=== PATIENT | male | born 1940 | race Caucasian/White ===

== ENCOUNTER 2020-03-10 19:26 | Inpatient (IN) | payer MEDICARE, OTHER, SELFPAY ==
--- NOTE | ~2020-03-10 | XR_ITS ---
EXAMINATION: XR chest 1V portable DATE: 03/10/2020 20:31 INDICATION: COVID positive, shortness of breath, tiredness and weakness. TECHNIQUE: frontal view of the chest was obtained. COMPARISON: Chest radiograph dated 07/27/18 FINDINGS: Bilateral interstitial and groundglass opacities throughout both lungs. No pneumothorax or definitive pleural effusion. Calcified nodules at the left lung base and calcified left hilar and mediastinal l ymph nodes consistent with old granulomatous disease. Cardiomegaly. Median sternotomy wires and media stinal surgical clips are seen, likely from prior coronary artery bypass grafting. IMPRESSION: 1. Diffuse bilateral interstitial and groundglass opacities which could represent either congestive h eart failure related pulmonary edema or pneumonia. 2. Cardiomegaly. Reviewed, dictated and finalized at location A. ITY COMPLIANCE MANAGER IMPRESSION: 1. Diffuse bilateral interstitial and groundglass opacities which could represe nt either congestive heart failure related pulmonary edema or pneumonia. 2. Cardiomegaly.
--- NOTE | ~2020-03-10 | CT_ITS ---
EXAMINATION: CT brain wo con DATE: 03/10/2020 20:32 INDICATION: Altered mental status. Lethargy. TECHNIQUE: Computed tomography (CT) of the head was performed without intravenous contrast. Sagittal and coronal reconstructions were performed. The mA was adjusted according to patient size. Iterative reconstruction technique was employed. The dose-length product was 681.00 mGy-cm. COMPARISON: head CT dated 02/05/2019 FINDINGS: Unchanged small old infarcts at the bilateral caudate nuclei, left lentiform nucleus extending to the left frontal jacobs radiata, left cerebellar hemisphere and a few small old cortical infarcts in the posterior right frontal, left parietal and bilateral occipital lobes. No acute intracranial hemorrha ge, acute infarction or abnormal extra axial fluid collection. There is mild to moderate scattered wh ite matter hypoattenuation consistent with chronic small vessel ischemic disease. Symmetric prominenc e of the sulci consistent with moderate age-appropriate diffuse cerebral volume loss. Ventricles are normal and symmetric. No mass/mass effect. Mild to moderate mucosal thickening the bilateral ethmoid and maxillary sinuses. The orbits and mastoid air cells are normal. Intracranial calcified cerebral a therosclerosis is noted. IMPRESSION: 1. No acute intracranial process. 2. 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 3. Additional age-related changes including moderate diffuse volume loss and mild to moderate scatter ed white matter hypoattenuation consistent with chronic small vessel ischemic disease. Reviewed, dictated and finalized at location A. TRUCK ENGINE MECHANIC IMPRESSION: 1. No acute intracranial process. 2. 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 3. Additional age-related changes including moderate diffuse volume loss and mi ld to moderate scattered white matter hypoattenuation consistent with chronic s mall vessel ischemic disease.
--- NOTE | ~2020-03-10 | XR_ITS ---
XR chest 1V portable 03/15/2020 06:08 Indication: Shortness of breath Procedure: AP portable chest Comparison: Comparison to multiple prior studies sequentially, with oldest reviewed study dated 07/20. Findings: There is post median sternotomy for CABG. Borderline heart size. Diffuse bilateral airspace disease unchanged. Calcified granulomas left lower lung. No pneumothorax. No significant pleural eff usion. No acute osseous abnormality. Impression: 1: Stable bilateral airspace disease which may represent edema or pneumonia. Reviewed, dictated and finalized at location A. IX BATH OPERATOR Impression: 1: Stable bilateral airspace disease which may represent edema or pneumonia.
[2020-03-10 19:38] VITALS: BP 160/78; PULSE 87; RESP 19; TEMP 36.7; O2SAT 99
[2020-03-10 19:48] VITALS: O2SAT 100
--- NOTE | 2020-03-10 19:52 | ECG_ITS ---
Measurements Intervals [place] Rate: 89 P: 50 NM: 180 QRS: -6 QRSD: 138 T: 171 QT: 383 QTc: 468 Interpretive Statements SINUS RHYTHM VENTRICULAR COUPLET AND VENTRICULAR PREMATURE COMPLEX INTRAVENTRICULAR CONDUCTION DELAY LEFT VENTRICULAR HYPERTROPHY AND ST-T CHANGE BORDERLINE R WAVE PROGRESSION, ANTERIOR LEADS INFERIOR INFARCT, AGE INDETERMINATE BASELINE ARTIFACT- I, II ,III, AVR, V1-V3 ABNORMAL ECG Electronically Signed On 03-10-2020 20:00:19 LEAD PROGRAMMER ANALYST by Donald Davison D.O.
--- NOTE | 2020-03-10 20:00 | ED.GENADULT ---
HPI - General Adult General Chief complaint: Shortness of Breath/Dyspnea Stated complaint: Not feeling well, low o2 Time Seen by Provider: 03/10/20 19:38 Source: family History of Present Illness HPI narrative: Patient is a 79 y/o male sent by [facility] for low sat. EMS reports that patient's sat was in 70s on RA and he was place on NRB and brought here. Daughter states that patient lives with her and he has been not feeling well for last 5-6 days. She states that patient has been less active and more lethargic last few days. There is no known alleviating or exacerbating factor. She states that there are multiple family members that tested positive for COVID recently. Patient is confused and unable to provide additional history. Related Data Allergies Allergy/AdvReac Type Severity Reaction Status Date / Time strawberry Allergy Mild Verified 02/05/19 11:03 morphine Allergy Unknown Verified 02/05/19 11:03 Review of Systems Review of Systems: ROS unobtainable: Yes unobtainable due to mental status [facility] Social History Social History Gender identity (if verbalized by the patient): Male Exam Const: General: no acute distress and ill appearing Orientation/consciousness: lethargic HENMT: Head: normocephalic Ears: external ears normal General nose exam: Normal external nose present Eyes: General: appearance normal, both eyes and all related structures Conjunctivae: conjunctivae normal Neck: Neck: normal visual inspection and full ROM Chest: Chest palpation & inspection: normal inspection of the chest and no tenderness Resp: Effort & Inspection: normal respiratory effort Auscultation: clear to auscultation bilaterally Cardio: Rate: regular rate Rhythm: regular rhythm GI: GI Palp: No abdominal tenderness and Yes Soft to palpation Skin: General skin exam: normal color and turgor normal Neuro: General: confusion Cognition (Neuro): normal cognition Extrem: General: normal to inspection, full ROM and no pedal edema Psych: Appearance: grossly normal Mental Status: mental status grossly normal Affect: normal affect Course Consultations Consultation #1: Discussed with Dr. Calabrese, who agrees to admit. Date: 03/10/20 Time: 22:36 Vital Signs Vital signs: Vital Signs Temperature 36.7 C 03/10/20 19:38 Pulse Rate 87 03/10/20 19:38 Respiratory Rate 19 03/10/20 19:38 Blood Pressure 160/78 H 03/10/20 19:38 Pulse Oximetry 99 03/10/20 19:38 Temperature 36.7 C 03/10/20 19:38 Pulse Rate 87 03/10/20 19:38 Respiratory Rate 19 03/10/20 19:38 Blood Pressure 160/78 H 03/10/20 19:38 Pulse Oximetry 98 03/10/20 22:00 Medical Decision Making Vital Signs Vital Signs: Vital Signs Temperature 36.7 C 03/10/20 19:38 Pulse Rate 87 03/10/20 19:38 Respiratory Rate 19 03/10/20 19:38 Blood Pressure 160/78 H 03/10/20 19:38 Pulse Oximetry 99 03/10/20 19:38 Temperature 36.7 C 03/10/20 19:38 Pulse Rate 87 03/10/20 19:38 Respiratory Rate 19 03/10/20 19:38 Blood Pressure 160/78 H 03/10/20 19:38 Pulse Oximetry 98 03/10/20 22:00 Lab Data Result diagrams: 03/10/20 20:07 03/10/20 20:07 Labs: Lab Results 03/10/20 03/10/20 03/10/20 Range/Units 20:06 20:07 20:07 WBC 4.9 (4.5-10.0) K/mm3 RBC 4.10 L (4.6-6.20) M/mm3 Hgb 12.3 L (14.0-18.0) g/dL Hct 36.7 L (42.0-52.0) % MCV 89.5 (80-100) fl MCH 30.0 (26-34) pg MCHC 33.5 (32-36) g/dl RDW 14.6 H (11.5-14.5) % Plt Count 171 (150-375) k/mm3 MPV 10.8 H (7.4-10.4) fl Immature Gran % (Auto) 0.2 (0-0.5) % Neut % (Auto) 79.0 H (45.5-73.1) % Lymph % (Auto) 14.4 L (18.3-44.2) % Ida % (Auto) 6.2 (2.6-8.5) % Eos % (Auto) 0.2 (0-4.4) % Baso % (Auto) 0.0 L (0.2-1.2) % Lymph # (Auto) 0.70 L (0.9-3.2) K/mm3 Ida # (Auto) 0.3 (0.1-0.6) K/mm3 Eos # (Auto) 0.0 (0-0.3) K/mm3 Baso # (Auto) 0.0 (0.0-0
[2020-03-10 20:15] VITALS: O2SAT 95
[2020-03-10 20:20] LABS: Eosinophils Percent Auto 0.2 % (0-4.4); Hematocrit 36.7 % (42.0-52.0); Hemoglobin 12.3 g/dL (14.0-18.0); Immature Granulocyte Absolute 0.01 K/mm3 (0.00-0.031); Immature Granulocyte Percent A 0.2 % (0-0.5); Lymphocytes Percent Auto 14.4 % (18.3-44.2); Mean Corpuscular HGB Conc 33.5 g/dl (32-36); Mean Corpuscular Volume 89.5 fl (80-100); Mean Platelet Volume 10.8 fl (7.4-10.4); Monocytes Absolute Auto 0.3 K/mm3 (0.1-0.6); Monocytes Percent Auto 6.2 % (2.6-8.5); Neutrophils Absolute Auto 3.8 K/mm3 (1.3-6.7); Platelet Count Result 171 k/mm3 (150-375); Red Cell Distribution Width 14.6 % (11.5-14.5); White Blood Count 4.9 K/mm3 (4.5-10.0)
[2020-03-10 20:25] LABS: Alveolar/Arterial O2 Gradient 116.4 mmHg; Base Excess ABG -3.1 mEq/l (+/-2.0); Fractional Inspired Oxygen 28 %; HCO3 ABG 19.2 mEq/l (22.0-26.0); Oxygen Content ABG 14.9 %vol (16.0-22.0); Oxygen Saturation ABG 89.5 % (95.0-100.0); Oxyhemoglobin 86.8 % THb (90.0-100.0); PCO2 ABG 26.7 mmHg (35.0-45.0); PO2 ABG 51.7 mmHg (80.0-100.0); PO2 FiO2 Ratio Arterial Blood 1.85 %; Site Drawn LEFT RADIAL; Total Hemoglobin 12.2 g/dL (12.0-18.0); pH ABG 7.474 (7.350-7.450)
[2020-03-10 20:26] LABS: Device NASAL CANNULA; Modified Allen's Test Pass
[2020-03-10 20:33] LABS: Alanine Aminotransferase 18 U/L (4-50); Albumin Level 3.8 g/dL (3.5-5.1); Alkaline Phosphatase 91 U/L (38-126); Anion Gap 9 mmol/L (8-16); Aspartate Amino Transferase 37 U/L (17-59); Bilirubin,Total 0.8 mg/dL (0.2-1.3); Blood Urea Nitrogen 29 mg/dL (9-20); Calcium 9.9 mg/dL (8.4-10.2); Carbon Dioxide 29 mmol/L (22-30); Chloride 101 mmol/L (98-107); Estimated CRCL calculation 53 ml/min; Estimated Glomerular Filt Rate 59; Glucose 179 mg/dL (75-110); Potassium 3.6 mmol/L (3.4-5.0); Sodium 139 mmol/L (137-145)
[2020-03-10 20:52] LABS: Troponin I 0.054 ng/mL (0.000-0.034)
[2020-03-10 21:56] LABS: NT Pro B Type Natriuretic Pept 3500 PG/ML (5-100)
[2020-03-10 22:00] VITALS: O2SAT 98
[2020-03-10] MEDS: FUROSEMIDE INJ 40 MG/4 ML VIAL IV PUSH (22:55)
[2020-03-10 23:24] LABS: Troponin I 0.052 ng/mL (0.000-0.034)
[2020-03-11] VITALS (17 sets, daily range): BP systolic 116–192; BP diastolic 41–89; PULSE 68–94; RESP 20–35; TEMP 35.8–36.7; O2SAT 92–97; BMI 27.5; BMI 27.6
--- NOTE | 2020-03-11 00:56 | ADMGEN ---
This patient, Marcio Rubi, was admitted to IMU Room 213-01. Patient/family oriented to hospital policies and general routines including ID bracelet, bed and alarms, visiting hours, pain management, procedures, bathroom and other care routines, personal items, smoking policy, room service/diet, and visiting hours. Information on how to activate the Rapid Response Team has been discussed. Patient/Family are encouraged to report perceived risks to care and to ask questions if they do not understand what they are told or what they should do.
[2020-03-11 02:44] LABS: Troponin I 0.048 ng/mL (0.000-0.034)
[2020-03-11 05:32] LABS: Anion Gap 7 mmol/L (8-16); Blood Urea Nitrogen 29 mg/dL (9-20); Calcium 9.2 mg/dL (8.4-10.2); Carbon Dioxide 27 mmol/L (22-30); Chloride 104 mmol/L (98-107); Estimated CRCL calculation 52 ml/min; Estimated Glomerular Filt Rate > 60; Glucose 178 mg/dL (75-110); Potassium 3.4 mmol/L (3.4-5.0); Sodium 138 mmol/L (137-145)
[2020-03-11] MEDS: ACETAMINOPHEN 325 MG TABLET 650 MG PO (10:34)
[2020-03-11 10:57] LABS: Glucose Point of Care 242 (65-105)
[2020-03-11 13:30] LABS: SARS-CoV-2 RNA PCR Positive
[2020-03-11 15:31] LABS: Glucose Point of Care 216 (65-105)
--- NOTE | 2020-03-11 16:38 | PM.IMHP ---
H&P: HPI History of Present Illness Date/Time: 03/11/20 16:38 Chief complaint: acute hypoxia respiratory failure, chf Narrative: Marcio Rubi is a 79 year old male sent by [facility] for low sat. multiple family members with covid, pt was initially on 15 liters of oxygen down to 5 liters now. pt may be needing oxygen on discharge. 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 History taken from family as pt is confused. lives with daughter, on monday was very sleepy very lethargic was incontinent, two family members are covid positive in the home. Pt has history of dm, copd, chf and multiple stents triple by pass and stroke. Pt is looking unwell with slight cough in the room Review of Systems Review of Systems: ROS unobtainable: Yes other (SOB, cough ) PMFSH Social History Social History Smoking packs per day: 1 Smoking cigarettes per day: 20.0 Years smoked: 30 Smoking pack-years: 30.00 Smoking status: Former smoker Tobacco type: cigarettes Alcohol intake: former Substance use: never Gender identity (if verbalized by the patient): Male Spiritual care concerns: No Meds Home Medications and Allergies Home Medications Medication Instructions Recorded Confirmed Type alogliptin 12.5 mg PO QAM 03/11/20 03/11/20 History atorvastatin 80 mg PO HS 03/11/20 03/11/20 History carvedilol 12.5 mg PO Q12H 03/11/20 03/11/20 History clopidogrel [Plavix] 75 mg PO QAM 03/11/20 03/11/20 History ferrous sulfate [Gentle Iron (iron 325 mg PO QAM 03/11/20 03/11/20 History sulfate)] furosemide [Lasix] 20 mg PO QNOON PRN 03/11/20 03/11/20 History furosemide [Lasix] 60 mg PO QAM 03/11/20 03/11/20 History insulin glargine [Lantus U-100 18 unit SUBCUT QPM 03/11/20 03/11/20 History Insulin] levothyroxine 100 mcg PO QAM 03/11/20 03/11/20 History metformin 1,000 mg PO BID 03/11/20 03/11/20 History venlafaxine [Effexor XR] 75 mg PO DAILY 03/11/20 03/11/20 History Allergies Allergy/AdvReac Type Severity Reaction Status Date / Time strawberry Allergy Mild Verified 02/05/19 11:03 morphine Allergy Unknown Verified 02/05/19 11:03 Vital Signs Vital Signs - 24 hr 03/10/20 19:38 03/10/20 19:48 03/10/20 20:15 Temperature 36.7 C Pulse Rate 87 Respiratory Rate 19 Blood Pressure 160/78 H Pulse Oximetry 99 100 95 03/10/20 22:00 03/11/20 00:01 03/11/20 00:25 Temperature 35.8 C L Pulse Rate 81 82 Respiratory Rate 24 H 22 H Blood Pressure 158/68 H 155/80 H Pulse Oximetry 98 96 92 03/11/20 01:17 03/11/20 02:00 03/11/20 04:00 Temperature 36.4 C L Pulse Rate 87 88 86 Respiratory Rate 20 Blood Pressure 150/58 H Pulse Oximetry 92 94 03/11/20 06:00 03/11/20 08:00 03/11/20 10:00 Temperature Pulse Rate 82 85 82 Respiratory Rate Blood Pressure Pulse Oximetry 92 03/11/20 10:59 03/11/20 12:00 03/11/20 14:00 Temperature 36.7 C 36.4 C Pulse Rate 84 77 81 Respiratory Rate 22 H 35 H Blood Pressure 116/62 118/41 L Pulse Oximetry 92 95 03/11/20 15:59 Temperature 36.3 C L Pulse Rate 78 Respiratory Rate 20 Blood Pressure 156/89 H Pulse Oximetry 96 Exam Const: General: lethargic, tired appearing and other (elderly man with wet cough, oriented x3, with oxygen on ) HENMT: Head: normocephalic Eyes: General: appearance normal, both eyes and all related structures Pupils: Equal, round and reactive pupils present Neck: Neck: supple Chest: Chest palpation & inspection: normal inspection of the chest Resp: Effort & Inspection: normal respiratory effort Auscultation: clear to auscultation bilaterally Cardio: Jugular venous distension: no JVD Rhythm: regular rhythm Heart sounds: S1 normal heart sound present and S2 normal
[2020-03-11] MEDS: metFORMIN HCL XR 500 MG TAB.SR.24H 1000 MG PO (17:05)
[2020-03-11] MEDS: INSULIN ASPART (*BKC) 100 UNITS/ML SUB-Q (17:05)
[2020-03-11] MEDS: INSULIN GLARGINE (*BKC) 100 UNITS/ML 18 UNITS SUB-Q (18:48)
[2020-03-11] MEDS: DEXAMETHASONE 2 MG TABLET 6 MG PO (18:48)
[2020-03-11 19:17] LABS: Alanine Aminotransferase 19 U/L (4-50)
[2020-03-11] MEDS: REMDESIVIR 200 MG/NS 250 ML 200 MG/250 ML BAG 250 MG IVPB (20:00)
[2020-03-11] MEDS: ATORVASTATIN 40 MG TABLET 80 MG PO (21:33)
[2020-03-11] MEDS: carvediloL 12.5 MG TABLET PO (21:33)
[2020-03-11] MEDS: ENOXAPARIN 40 MG/0.4 ML SYRINGE SUB-Q (21:34)
[2020-03-12] VITALS (16 sets, daily range): BP systolic 137–170; BP diastolic 62–86; PULSE 61–95; RESP 18–20; TEMP 34.6–37.2; O2SAT 91–99
[2020-03-12 03:48] LABS: Glucose Point of Care 273 (65-105)
[2020-03-12] MEDS: LEVOTHYROXINE SODIUM 100 MCG TABLET PO (06:25)
[2020-03-12] MEDS: hydrALAZINE HCL 20 MG/ML VIAL 10 MG IV PUSH (06:33)
[2020-03-12 07:04] LABS: Alanine Aminotransferase 20 U/L (4-50)
[2020-03-12] MEDS: DEXAMETHASONE 2 MG TABLET 6 MG PO (08:40)
[2020-03-12] MEDS: INSULIN ASPART (*BKC) 100 UNITS/ML SUB-Q ×3 (08:41→16:27)
[2020-03-12] MEDS: VENLAFAXINE HCL XR 75 MG CAP.ER.24H PO (08:44)
[2020-03-12] MEDS: metFORMIN HCL XR 500 MG TAB.SR.24H 1000 MG PO ×2 (08:44→16:27)
[2020-03-12] MEDS: carvediloL 12.5 MG TABLET PO ×2 (08:45→19:50)
[2020-03-12] MEDS: FERROUS SULFATE 324 MG TABLET PO (08:45)
[2020-03-12] MEDS: FUROSEMIDE 20 MG TABLET 60 MG PO (08:45)
[2020-03-12] MEDS: ENOXAPARIN 40 MG/0.4 ML SYRINGE SUB-Q ×2 (08:45→19:51)
[2020-03-12] MEDS: CLOPIDOGREL BISULFATE 75 MG TABLET PO (08:45)
--- NOTE | 2020-03-12 15:29 | PM.IMPN ---
Progress Note: A&P Assessment and Plan (1) Acute respiratory failure with hypoxia: Code(s): J96.01 - Acute respiratory failure with hypoxia Status: Acute Assessment and Plan: Pt is on 5 liters of oxygen was on 15 liters on admission, continue oxygen albuterol inhaler steroids for covid + COPD (2) CHF (congestive heart failure): Qualifiers: Heart failure chronicity: acute on chronic Heart failure type: unspecified Qualified Code(s): I50.9 - Heart failure, unspecified Code(s): I50.9 - Heart failure, unspecified Status: Acute Assessment and Plan: limit fluid hydration continue home medications (3) COVID-19: Code(s): U07.1 - COVID-19 Status: Acute Assessment and Plan: Order remdesivir, steroids and albuterol already started (4) Diabetes: Code(s): E11.9 - Type 2 diabetes mellitus without complications Status: Acute Assessment and Plan: SSI, insulin, AccuCheck watch for hyperglycemia with steroids continue metformin Subjective Date/time seen: 03/12/20 15:29 Interval history: Pt has history of dm, copd, chf and multiple stents triple by pass and stroke. Pt admitted with covid. Pt is doing better feels less SOB less cough, on 5 liters of oxygen, more alert talking to me without coughing, no fever . Review of Systems Review of Systems: All systems reviewed & are unremarkable except as noted in HPI and below Exam Narrative: Exam Narrative: Looks comfortable Chest: Chest palpation & inspection: normal inspection of the chest Resp: Effort & Inspection: normal respiratory effort GI: Inspection: normal to inspection Auscultation: normal bowel sounds Skin: General skin exam: normal color and dry skin Neuro: Cranial nerves: Yes CN's II-XII intact bilaterally and Yes Equal, round and reactive pupils present Cognition (Neuro): normal cognition Speech: normal speech Motor exam (neuro): 5/5 motor strength present throughout Extrem: General: normal to inspection Psych: Appearance: grossly normal Mental Status: mental status grossly normal Objective Data Vital Signs Vital Signs: Vital Signs - 24 hr 03/11/20 15:59 03/11/20 16:00 03/11/20 18:00 Temperature 36.3 C L 36.3 C L Pulse Rate 78 68 89 Respiratory Rate 20 20 Blood Pressure 156/89 H 156/89 H Pulse Oximetry 96 96 03/11/20 20:00 03/11/20 21:33 03/11/20 22:00 Temperature 36.1 C L Pulse Rate 88 94 84 Respiratory Rate 20 Blood Pressure 192/73 H Pulse Oximetry 97 03/12/20 00:00 03/12/20 02:00 03/12/20 04:00 Temperature 35.9 C L 36.2 C L Pulse Rate 62 74 68 Respiratory Rate 20 18 Blood Pressure 170/86 H 169/81 H Pulse Oximetry 98 99 03/12/20 06:00 03/12/20 08:00 03/12/20 08:45 Temperature 36.3 C L Pulse Rate 78 91 78 Respiratory Rate 18 Blood Pressure 162/76 H Pulse Oximetry 93 03/12/20 12:00 Temperature Pulse Rate Respiratory Rate Blood Pressure Pulse Oximetry 93 Intake/Output Intake/Output: Intake & Output 03/09/20 03/10/20 03/11/20 03/12/20 23:59 23:59 23:59 23:59 Intake Total 300 540 Output Total 825 650 Balance -525 -110 Meds/Results Medications: Active Medications Generic Name Dose Route Start Last Admin Trade Name Freq PRN Reason Stop Dose Admin Acetaminophen 650 mg 03/11/20 10:02 03/11/20 10:34 Acetaminophen 325 Mg Tablet PO 650 mg Q6H PRN Administration Mild Pain (1-3) or Fever Albuterol 2 puff 03/11/20 17:20 Albuterol Sulfate (*Sp) Aerosol 1 Puff INHALATION Q6HRT PRN Shortness Of Breath Atorvastatin Calcium 80 mg 03/11/20 21:00 03/11/20 21:33 Atorvastatin 40 Mg Tablet PO 80 mg HS NAKIA Administration Carvedilol 12.5 mg 03/11/20 21:00 03/12/20 08:45 Carvedilol 12.5 Mg Tablet PO 12.5 mg Q12HR NAKIA Administration Clopidogrel Bisulfate 75 mg 03/12/20 09:00 03/12/20 08:45 Clopidogrel Bisulfate 75 Mg Tablet PO 75 mg QAM
[2020-03-12 16:22] LABS: Glucose Point of Care 318 (65-105)
[2020-03-12 16:22] LABS: Glucose Point of Care 254 (65-105)
[2020-03-12 17:44] LABS: Glucose Point of Care 340 (65-105)
[2020-03-12 17:54] LABS: CRP 6.2 mg/dL (<1.0)
[2020-03-12] MEDS: ACETAMINOPHEN 325 MG TABLET 650 MG PO (19:44)
[2020-03-12] MEDS: ATORVASTATIN 40 MG TABLET 80 MG PO (19:50)
[2020-03-12 20:19] LABS: Alanine Aminotransferase 19 U/L (4-50); Albumin Level 3.4 g/dL (3.5-5.1); Alkaline Phosphatase 88 U/L (38-126); Anion Gap 8 mmol/L (8-16); Aspartate Amino Transferase 24 U/L (17-59); Bilirubin,Total 0.5 mg/dL (0.2-1.3); Blood Urea Nitrogen 31 mg/dL (9-20); Calcium 10.1 mg/dL (8.4-10.2); Carbon Dioxide 26 mmol/L (22-30); Chloride 101 mmol/L (98-107); Estimated CRCL calculation 56 ml/min; Estimated Glomerular Filt Rate > 60; Glucose 330 mg/dL (75-110); Potassium 4.3 mmol/L (3.4-5.0); Sodium 135 mmol/L (137-145)
--- NOTE | 2020-03-12 20:21 | PC.NURSE ---
Telephone report received from JESSICA Norris RN.
--- NOTE | 2020-03-12 20:36 | PC.NURSE ---
Transfer received per hospital bed from IMU 213. No complaints voiced.
--- NOTE | 2020-03-12 20:46 | PC.NURSE ---
This patient, Marcio Rubi, was transferred to [facility] on 03/12/20 at 2040. Personal belongings sent with patient. Report given EVANGELINA Mendiola. Appropriate documentation sent with patient.
[2020-03-12] MEDS: INSULIN GLARGINE (*BKC) 100 UNITS/ML 18 UNITS SUB-Q (22:00)
[2020-03-12] MEDS: REMDESIVIR 100 MG/NS 250 ML 100 MG/250 ML BAG 250 MG IVPB (22:21)
[2020-03-12 22:36] LABS: Glucose Point of Care 272 (65-105)
[2020-03-13] VITALS (12 sets, daily range): BP systolic 126–164; BP diastolic 62–74; PULSE 65–86; RESP 18–22; TEMP 35.8–36.9; O2SAT 80–97
[2020-03-13] MEDS: LEVOTHYROXINE SODIUM 100 MCG TABLET PO (06:04)
[2020-03-13 06:50] LABS: Alanine Aminotransferase 17 U/L (4-50)
[2020-03-13] MEDS: ENOXAPARIN 40 MG/0.4 ML SYRINGE SUB-Q ×2 (09:01→21:36)
[2020-03-13] MEDS: DEXAMETHASONE 2 MG TABLET 6 MG PO (09:01)
[2020-03-13] MEDS: carvediloL 12.5 MG TABLET PO ×2 (09:01→21:37)
[2020-03-13] MEDS: CLOPIDOGREL BISULFATE 75 MG TABLET PO (09:01)
[2020-03-13] MEDS: metFORMIN HCL XR 500 MG TAB.SR.24H 1000 MG PO ×2 (09:02→17:12)
[2020-03-13] MEDS: VENLAFAXINE HCL XR 75 MG CAP.ER.24H PO (09:02)
[2020-03-13] MEDS: FERROUS SULFATE 324 MG TABLET PO (09:02)
[2020-03-13] MEDS: INSULIN ASPART (*BKC) 100 UNITS/ML SUB-Q ×3 (09:13→17:12)
[2020-03-13] MEDS: FUROSEMIDE 20 MG TABLET 60 MG PO (11:50)
[2020-03-13 12:29] LABS: Glucose Point of Care 232 (65-105)
[2020-03-13 12:29] LABS: Glucose Point of Care 337 (65-105)
[2020-03-13 17:09] LABS: Glucose Point of Care 326 (65-105)
--- NOTE | 2020-03-13 17:37 | PM.IMPN ---
Progress Note: A&P Assessment and Plan (1) Acute respiratory failure with hypoxia: Code(s): J96.01 - Acute respiratory failure with hypoxia Status: Acute Assessment and Plan: Pt is on 4 liters of oxygen was on 15 liters on admission, continue oxygen albuterol inhaler steroids for covid + COPD (2) CHF (congestive heart failure): Qualifiers: Heart failure chronicity: acute on chronic Heart failure type: unspecified Qualified Code(s): I50.9 - Heart failure, unspecified Code(s): I50.9 - Heart failure, unspecified Status: Acute Assessment and Plan: limit fluid hydration continue home medications (3) COVID-19: Code(s): U07.1 - COVID-19 Status: Acute Assessment and Plan: on remdesivir started on 03/12/2020, steroids and albuterol already started (4) Diabetes: Code(s): E11.9 - Type 2 diabetes mellitus without complications Status: Acute Assessment and Plan: SSI, insulin, AccuCheck watch for hyperglycemia with steroids continue metformin Subjective Date/time seen: 03/13/20 17:37 Interval history: Pt has history of dm, copd, chf and multiple stents triple by pass and stroke. Pt admitted with covid. Pt is doing better feels less SOB less cough, on 4 liters of oxygen, resting in bed. Review of Systems Review of Systems: All systems reviewed & are unremarkable except as noted in HPI and below Exam Narrative: Exam Narrative: Looks comfortable on oxygen lying in bed resting HENMT: Head: normocephalic Neck: Neck: supple Chest: Chest palpation & inspection: normal inspection of the chest Resp: Effort & Inspection: normal respiratory effort Cardio: Jugular venous distension: no JVD Rhythm: regular rhythm Heart sounds: S1 normal heart sound present and S2 normal heart sound present GI: Inspection: normal to inspection Auscultation: normal bowel sounds : General: Yes no CVA tenderness Back/Spine/Pelvis: Back: no CVA tenderness Skin: General skin exam: normal color and dry skin Neuro: Cranial nerves: Yes CN's II-XII intact bilaterally and Yes Equal, round and reactive pupils present Cognition (Neuro): normal cognition Speech: normal speech Motor exam (neuro): 5/5 motor strength present throughout Extrem: General: normal to inspection Psych: Appearance: grossly normal Mental Status: mental status grossly normal Objective Data Vital Signs Vital Signs: Vital Signs - 24 hr 03/12/20 18:00 03/12/20 19:42 03/12/20 19:50 Temperature 34.6 C L Pulse Rate 80 83 80 Respiratory Rate 18 Blood Pressure 164/64 H Pulse Oximetry 91 03/12/20 20:00 03/12/20 20:40 03/13/20 00:00 Temperature 37.2 C 36.7 C Pulse Rate 80 76 Respiratory Rate 20 22 H Blood Pressure 137/70 126/62 Pulse Oximetry 93 97 94 03/13/20 04:00 03/13/20 08:00 03/13/20 09:01 Temperature 35.8 C L 36.7 C Pulse Rate 86 69 80 Respiratory Rate 22 H 18 Blood Pressure 129/64 158/64 H Pulse Oximetry 92 96 03/13/20 09:20 03/13/20 12:00 03/13/20 14:38 Temperature 36.9 C Pulse Rate 80 65 Respiratory Rate 22 H 20 Blood Pressure 139/66 Pulse Oximetry 92 97 80 L 03/13/20 14:40 Temperature Pulse Rate Respiratory Rate Blood Pressure Pulse Oximetry 91 Intake/Output Intake/Output: Intake & Output 03/10/20 03/11/20 03/12/20 03/13/20 23:59 23:59 23:59 23:59 Intake Total 300 2220 980 Output Total 825 1550 600 Balance -525 670 380 Meds/Results Medications: Active Medications Generic Name Dose Route Start Last Admin Trade Name Freq PRN Reason Stop Dose Admin Acetaminophen 650 mg 03/11/20 10:02 03/12/20 19:44 Acetaminophen 325 Mg Tablet PO 650 mg Q6H PRN Administration Mild Pain (1-3) or Fever Albuterol 2 puff 03/11/20 17:20 Albuterol Sulfate (*Sp) Aerosol 1 Puff INHALATION Q6HRT PRN Shortness Of Breath Atorvastatin Calcium 80 mg 03/11/20 21:00 03/12/20 19:50 Atorvasta
[2020-03-13 18:25] LABS: Alanine Aminotransferase 18 U/L (4-50); Albumin Level 3.2 g/dL (3.5-5.1); Alkaline Phosphatase 81 U/L (38-126); Anion Gap 8 mmol/L (8-16); Aspartate Amino Transferase 22 U/L (17-59); Bilirubin,Total 0.4 mg/dL (0.2-1.3); Blood Urea Nitrogen 36 mg/dL (9-20); Calcium 10.2 mg/dL (8.4-10.2); Carbon Dioxide 26 mmol/L (22-30); Chloride 102 mmol/L (98-107); Estimated CRCL calculation 62 ml/min; Estimated Glomerular Filt Rate > 60; Glucose 330 mg/dL (75-110); Potassium 4.2 mmol/L (3.4-5.0); Sodium 136 mmol/L (137-145)
[2020-03-13 18:27] LABS: CRP 2.8 mg/dL (<1.0)
[2020-03-13] MEDS: INSULIN GLARGINE (*BKC) 100 UNITS/ML 18 UNITS SUB-Q (21:31)
[2020-03-13] MEDS: REMDESIVIR 100 MG/NS 250 ML 100 MG/250 ML BAG 250 MG IVPB (21:36)
[2020-03-13] MEDS: ATORVASTATIN 40 MG TABLET 80 MG PO (21:37)
[2020-03-13 22:16] LABS: Glucose Point of Care 371 (65-105)
[2020-03-14] VITALS (7 sets, daily range): BP systolic 149–178; BP diastolic 59–64; PULSE 64–82; RESP 20–22; TEMP 36.5–36.9; O2SAT 91–96
[2020-03-14] MEDS: LEVOTHYROXINE SODIUM 100 MCG TABLET PO (05:45)
[2020-03-14 07:03] LABS: Alanine Aminotransferase 16 U/L (4-50)
[2020-03-14] MEDS: metFORMIN HCL XR 500 MG TAB.SR.24H 1000 MG PO ×2 (09:01→16:19)
[2020-03-14] MEDS: carvediloL 12.5 MG TABLET PO ×2 (09:01→21:07)
[2020-03-14] MEDS: FUROSEMIDE 20 MG TABLET 60 MG PO (09:01)
[2020-03-14] MEDS: VENLAFAXINE HCL XR 75 MG CAP.ER.24H PO (09:01)
[2020-03-14] MEDS: DEXAMETHASONE 2 MG TABLET 6 MG PO (09:02)
[2020-03-14] MEDS: CLOPIDOGREL BISULFATE 75 MG TABLET PO (09:02)
[2020-03-14] MEDS: FERROUS SULFATE 324 MG TABLET PO (09:02)
[2020-03-14] MEDS: ENOXAPARIN 40 MG/0.4 ML SYRINGE SUB-Q ×2 (09:02→21:05)
[2020-03-14 09:31] LABS: Glucose Point of Care 198 (65-105)
[2020-03-14] MEDS: INSULIN ASPART (*BKC) 100 UNITS/ML SUB-Q ×3 (12:24→21:33)
[2020-03-14 12:35] LABS: Glucose Point of Care 267 (65-105)
--- NOTE | 2020-03-14 15:40 | PM.IMPN ---
Progress Note: A&P Assessment and Plan (1) Acute respiratory failure with hypoxia: Code(s): J96.01 - Acute respiratory failure with hypoxia Status: Acute Assessment and Plan: Pt is on 2 liters of oxygen was on 15 liters on admission, continue oxygen albuterol inhaler steroids for covid + COPD (2) CHF (congestive heart failure): Qualifiers: Heart failure chronicity: acute on chronic Heart failure type: unspecified Qualified Code(s): I50.9 - Heart failure, unspecified Code(s): I50.9 - Heart failure, unspecified Status: Acute Assessment and Plan: limit fluid hydration continue home medications (3) COVID-19: Code(s): U07.1 - COVID-19 Status: Acute Assessment and Plan: on remdesivir started on 03/12/2020, steroids and albuterol already started, hopeful discharge with home oxygen assessment (4) Diabetes: Code(s): E11.9 - Type 2 diabetes mellitus without complications Status: Acute Assessment and Plan: SSI, insulin, AccuCheck watch for hyperglycemia with steroids continue metformin Subjective Date/time seen: 03/14/20 15:40 Interval history: Pt has history of dm, copd, chf and multiple stents triple by pass and stroke. Pt admitted with covid. Pt is doing better oxygen prn. Pt wants to go home tomorrow, feels much better since admission. Review of Systems Review of Systems: All systems reviewed & are unremarkable except as noted in HPI and below Objective Data Vital Signs Vital Signs: Vital Signs - 24 hr 03/13/20 16:00 03/13/20 20:00 03/13/20 21:15 Temperature 36.5 C 36.1 C L Pulse Rate 70 70 Respiratory Rate 18 20 Blood Pressure 164/65 H 131/74 Pulse Oximetry 93 93 93 03/13/20 21:37 03/14/20 00:00 03/14/20 08:00 Temperature 36.6 C 36.5 C Pulse Rate 70 68 72 Respiratory Rate 20 20 Blood Pressure 152/62 H 178/64 H Pulse Oximetry 93 94 03/14/20 09:01 03/14/20 12:00 Temperature 36.6 C Pulse Rate 72 64 Respiratory Rate 22 H Blood Pressure 149/62 H Pulse Oximetry 96 Intake/Output Intake/Output: Intake & Output 12/05/3003/12/20 03/13/20 03/14/20 23:59 23:59 23:59 23:59 Intake Total 300 2220 1870 680 Output Total 825 6470 5819 1150 Balance -525 670 195 -470 Meds/Results Medications: Active Medications Generic Name Dose Route Start Last Admin Trade Name Freq PRN Reason Stop Dose Admin Acetaminophen 650 mg 03/11/20 10:02 03/12/20 19:44 Acetaminophen 325 Mg Tablet PO 650 mg Q6H PRN Administration Mild Pain (1-3) or Fever Albuterol 2 puff 03/11/20 17:20 Albuterol Sulfate (*Sp) Aerosol 1 Puff INHALATION Q6HRT PRN Shortness Of Breath Atorvastatin Calcium 80 mg 03/11/20 21:00 03/13/20 21:37 Atorvastatin 40 Mg Tablet PO 80 mg HS NAKIA Administration Carvedilol 12.5 mg 03/11/20 21:00 03/14/20 09:01 Carvedilol 12.5 Mg Tablet PO 12.5 mg Q12HR NAKIA Administration Clopidogrel Bisulfate 75 mg 03/12/20 09:00 03/14/20 09:02 Clopidogrel Bisulfate 75 Mg Tablet PO 75 mg QAM NAKIA Administration Dexamethasone 6 mg 03/11/20 17:25 03/14/20 09:02 Dexamethasone 2 Mg Tablet PO 03/20/20 08:01 6 mg DAILY@0800 NAKIA Administration Dextrose 12.5 gm 03/11/20 11:50 Dextrose 50% 25 Gm/50 Ml Syringe IV PUSH PRN PRN Hypoglycemia Protocol Enoxaparin Sodium 40 mg 03/11/20 21:00 03/14/20 09:02 Enoxaparin 40 Mg/0.4 Ml Syringe SUB-Q 40 mg Q12HR NAKIA Administration Ferrous Sulfate 324 mg 03/12/20 09:00 03/14/20 09:02 Ferrous Sulfate 324 Mg Tablet PO 324 mg QAM NAKIA Administration Furosemide 60 mg 03/12/20 09:00 03/14/20 09:01 Furosemide 20 Mg Tablet PO 60 mg QAM NAKIA Administration Furosemide 20 mg 03/11/20 12:00 Furosemide 20 Mg Tablet PO DAILY@1600 PRN SWELLING Glucagon 1 mg 03/11/20 11:50 Glucagon For Inj 1 Mg Vial IM PRN PRN Hypoglycemia Protocol Glucose
[2020-03-14 17:09] LABS: Glucose Point of Care 262 (65-105)
[2020-03-14 19:25] LABS: Alanine Aminotransferase 30 U/L (4-50); Alkaline Phosphatase 81 U/L (38-126); Anion Gap 8 mmol/L (8-16); Aspartate Amino Transferase 40 U/L (17-59); Bilirubin,Total 0.4 mg/dL (0.2-1.3); Blood Urea Nitrogen 38 mg/dL (9-20); Carbon Dioxide 30 mmol/L (22-30); Chloride 97 mmol/L (98-107); Estimated CRCL calculation 52 ml/min; Estimated Glomerular Filt Rate > 60; Glucose 325 mg/dL (75-110); Potassium 4.3 mmol/L (3.4-5.0); Sodium 135 mmol/L (137-145)
[2020-03-14] MEDS: INSULIN GLARGINE (*BKC) 100 UNITS/ML 18 UNITS SUB-Q (21:05)
[2020-03-14] MEDS: REMDESIVIR 100 MG/NS 250 ML 100 MG/250 ML BAG 250 MG IVPB (21:06)
[2020-03-14] MEDS: DOCUSATE SODIUM 100 MG CAPSULE PO (21:06)
[2020-03-14] MEDS: ATORVASTATIN 40 MG TABLET 80 MG PO (21:07)
[2020-03-14 21:56] LABS: Glucose Point of Care 348 (65-105)
[2020-03-15] VITALS (8 sets, daily range): BP systolic 124–166; BP diastolic 48–72; PULSE 60–76; RESP 18–20; TEMP 36.3–36.9; O2SAT 91–95
[2020-03-15] MEDS: LEVOTHYROXINE SODIUM 100 MCG TABLET PO (06:09)
[2020-03-15 09:15] LABS: Glucose Point of Care 172 (65-105)
[2020-03-15 09:15] LABS: Alanine Aminotransferase 41 U/L (4-50); Albumin Level 2.9 g/dL (3.5-5.1); Alkaline Phosphatase 81 U/L (38-126); Anion Gap 4 mmol/L (8-16); Aspartate Amino Transferase 45 U/L (17-59); Bilirubin,Total 0.5 mg/dL (0.2-1.3); Blood Urea Nitrogen 36 mg/dL (9-20); Carbon Dioxide 34 mmol/L (22-30); Chloride 100 mmol/L (98-107); Estimated CRCL calculation 56 ml/min; Estimated Glomerular Filt Rate > 60; Glucose 181 mg/dL (75-110); Potassium 4.2 mmol/L (3.4-5.0); Sodium 138 mmol/L (137-145)
[2020-03-15] MEDS: DEXAMETHASONE 2 MG TABLET 6 MG PO (10:02)
[2020-03-15] MEDS: VENLAFAXINE HCL XR 75 MG CAP.ER.24H PO (10:03)
[2020-03-15] MEDS: FERROUS SULFATE 324 MG TABLET PO (10:03)
[2020-03-15] MEDS: FUROSEMIDE 20 MG TABLET 60 MG PO (10:03)
[2020-03-15] MEDS: metFORMIN HCL XR 500 MG TAB.SR.24H 1000 MG PO ×2 (10:03→18:07)
[2020-03-15] MEDS: DOCUSATE SODIUM 100 MG CAPSULE PO ×2 (10:03→20:53)
[2020-03-15] MEDS: carvediloL 12.5 MG TABLET PO ×2 (10:04→20:53)
[2020-03-15] MEDS: ENOXAPARIN 40 MG/0.4 ML SYRINGE SUB-Q ×2 (10:04→20:53)
[2020-03-15] MEDS: CLOPIDOGREL BISULFATE 75 MG TABLET PO (10:04)
[2020-03-15] MEDS: INSULIN ASPART (*BKC) 100 UNITS/ML SUB-Q ×2 (12:49→18:06)
[2020-03-15 12:57] LABS: Glucose Point of Care 228 (65-105)
--- NOTE | 2020-03-15 13:04 | PCPTNOTE ---
Patient declined therapy in the am stating he just got done eating and wants to rest. Patient declined therapy in pm stating he is in a bad mood and won't do anything. Educated patient on importance of working with therapy to help get him stronger. Patient still declined. Will attempt at later time/date.
--- NOTE | 2020-03-15 13:49 | PCOTNOTE ---
Attempted to see patient, however patient eating lunch at this time. Will check back later.
--- NOTE | 2020-03-15 15:24 | PM.IMPN ---
Progress Note: A&P Assessment and Plan (1) Acute respiratory failure with hypoxia: Code(s): J96.01 - Acute respiratory failure with hypoxia Status: Acute Assessment and Plan: Pt is on 2 liters of oxygen was on 15 liters on admission, continue oxygen albuterol inhaler steroids for covid + COPD 03/15/20 15:24 Patient is 79-year-old male with history of CABG and stroke patient is mainly being with his daughter is sent patient was seen at the local urgent care and was quite hypoxic oxygen saturation was 70% was brought to emergency department for further evaluation patient had been exposed to COVID-19 he was positive on March 10, patient was started on dexamethasone 5/10 as well as Remdesivir 3/5 since then he has been doing very well today's on 2 L of oxygen, is feeling much better, denies any shortness breath, wants to go home, if remains clinically stable on 2 L oxygen and no fever will discharge the patient home tomorrow. (2) CHF (congestive heart failure): Qualifiers: Heart failure chronicity: acute on chronic Heart failure type: unspecified Qualified Code(s): I50.9 - Heart failure, unspecified Code(s): I50.9 - Heart failure, unspecified Status: Acute Assessment and Plan: limit fluid hydration continue home medications (3) COVID-19: Code(s): U07.1 - COVID-19 Status: Acute Assessment and Plan: on remdesivir started on 03/12/2020, steroids and albuterol already started, hopeful discharge with home oxygen assessment (4) Diabetes: Code(s): E11.9 - Type 2 diabetes mellitus without complications Status: Acute Assessment and Plan: SSI, insulin, AccuCheck watch for hyperglycemia with steroids continue metformin Subjective Date/time seen: 03/15/20 15:24 Patient is 79-year-old male with history of CABG and stroke patient is mainly being with his daughter is sent patient was seen at the local urgent care and was quite hypoxic oxygen saturation was 70% was brought to emergency department for further evaluation patient had been exposed to COVID-19 he was positive on March 10, patient was started on dexamethasone 5/10 as well as Remdesivir 3/5 since then he has been doing very well today's on 2 L of oxygen, is feeling much better, denies any shortness breath, wants to go home, if remains clinically stable on 2 L oxygen and no fever will discharge the patient home tomorrow. Review of Systems Review of Systems: All systems reviewed & are unremarkable except as noted in HPI and below Exam Narrative: Exam Narrative: Elderly frail Patient is comfortable, NAD HEENT: eyes are clear and none icteric LUNGS: Normal respiratory effort bilateral fair air entry with rhonchi HEART: RR S1S2 ABD: BS+, Soft and nontender Lower extremities: no edema SKIN: nonjaundiced Neuro: grossly intact. Objective Data Vital Signs Vital Signs: Vital Signs - 24 hr 03/14/20 16:00 03/14/20 20:00 03/14/20 21:07 Temperature 97.7 F 98.5 F Pulse Rate 68 82 65 Respiratory Rate 22 H 20 Blood Pressure 171/59 H 150/60 H Pulse Oximetry 96 91 03/15/20 00:00 03/15/20 04:00 03/15/20 08:00 Temperature 97.7 F 97.6 F 98.3 F Pulse Rate 64 76 60 Respiratory Rate 20 20 20 Blood Pressure 148/60 H 158/60 H 166/64 H Pulse Oximetry 91 91 94 03/15/20 10:04 03/15/20 12:00 Temperature 98.5 F Pulse Rate 60 66 Respiratory Rate 20 Blood Pressure 131/50 L Pulse Oximetry 93 Intake/Output Intake/Output: Intake & Output 03/12/20 03/13/20 03/14/20 03/15/20 23:59 23:59 23:59 23:59 Intake Total 2220 1870 1170 730 Output Total 1550 1675 1800 1400 Balance 041 413 -903 -251 Meds/Results Medications: Active Medications Generic Name Dose Route Start Last Admin Trade Name Freq PRN Reason Stop Dose Admin Acetaminophen 650 mg 03/11/20 10:02 03/12/20 19:44 Acetaminophen 325 Mg Tablet PO 650 mg Q6H PRN Administration Mild Pain (1-3) or Fever
--- NOTE | 2020-03-15 16:23 | PCRCNOTE ---
nurse said to hold off on walk til tomorrow
[2020-03-15 18:33] LABS: Glucose Point of Care 285 (65-105)
[2020-03-15 19:20] LABS: Alanine Aminotransferase 50 U/L (4-50); Alkaline Phosphatase 81 U/L (38-126); Anion Gap 8 mmol/L (8-16); Aspartate Amino Transferase 57 U/L (17-59); Bilirubin,Total 0.4 mg/dL (0.2-1.3); Blood Urea Nitrogen 41 mg/dL (9-20); Carbon Dioxide 32 mmol/L (22-30); Chloride 96 mmol/L (98-107); Estimated CRCL calculation 56 ml/min; Estimated Glomerular Filt Rate > 60; Glucose 292 mg/dL (75-110); Potassium 4.2 mmol/L (3.4-5.0); Sodium 136 mmol/L (137-145)
[2020-03-15] MEDS: INSULIN GLARGINE (*BKC) 100 UNITS/ML 18 UNITS SUB-Q (20:51)
[2020-03-15] MEDS: ATORVASTATIN 40 MG TABLET 80 MG PO (20:54)
[2020-03-15] MEDS: REMDESIVIR 100 MG/NS 250 ML 100 MG/250 ML BAG 250 MG IVPB (20:55)
[2020-03-15 21:09] LABS: Glucose Point of Care 286 (65-105)
[2020-03-16] VITALS (9 sets, daily range): BP systolic 136–171; BP diastolic 50–79; PULSE 65–94; RESP 20; TEMP 36–36.2; O2SAT 86–96
[2020-03-16] MEDS: LEVOTHYROXINE SODIUM 100 MCG TABLET PO (06:38)
[2020-03-16 07:38] LABS: Alanine Aminotransferase 51 U/L (4-50); Albumin Level 2.8 g/dL (3.5-5.1); Alkaline Phosphatase 77 U/L (38-126); Anion Gap 4 mmol/L (8-16); Aspartate Amino Transferase 42 U/L (17-59); Bilirubin,Total 0.4 mg/dL (0.2-1.3); Blood Urea Nitrogen 38 mg/dL (9-20); CRP 1.1 mg/dL (<1.0); Carbon Dioxide 31 mmol/L (22-30); Chloride 102 mmol/L (98-107); Estimated CRCL calculation 104 ml/min; Estimated Glomerular Filt Rate > 60; Glucose 161 mg/dL (75-110); Sodium 137 mmol/L (137-145)
[2020-03-16 09:23] LABS: Glucose Point of Care 144 (65-105)
[2020-03-16] MEDS: metFORMIN HCL XR 500 MG TAB.SR.24H 1000 MG PO (10:35)
[2020-03-16] MEDS: DEXAMETHASONE 2 MG TABLET 6 MG PO (10:35)
[2020-03-16] MEDS: CLOPIDOGREL BISULFATE 75 MG TABLET PO (10:35)
[2020-03-16] MEDS: carvediloL 12.5 MG TABLET PO (10:35)
[2020-03-16] MEDS: ENOXAPARIN 40 MG/0.4 ML SYRINGE SUB-Q (10:36)
[2020-03-16] MEDS: DOCUSATE SODIUM 100 MG CAPSULE PO (10:36)
[2020-03-16] MEDS: FUROSEMIDE 20 MG TABLET 60 MG PO (10:36)
[2020-03-16] MEDS: FERROUS SULFATE 324 MG TABLET PO (10:36)
[2020-03-16] MEDS: VENLAFAXINE HCL XR 75 MG CAP.ER.24H PO (10:37)
[2020-03-16 13:15] LABS: Glucose Point of Care 160 (65-105)
--- NOTE | 2020-03-16 13:19 | PM.DS ---
DS: Admitting Diagnosis Admitting Diagnosis Admitting Diagnosis: acute hypoxia respiratory failure, chf DS: Discharge Diagnosis Discharge Diagnosis (1) Acute respiratory failure with hypoxia: Code(s): J96.01 - Acute respiratory failure with hypoxia Status: Acute Assessment and Plan: Pt is on 2 liters of oxygen was on 15 liters on admission, continue oxygen albuterol inhaler steroids for covid + COPD 03/15/20 15:24 Patient is 79-year-old male with history of CABG and stroke patient is mainly being with his daughter is sent patient was seen at the local urgent care and was quite hypoxic oxygen saturation was 70% was brought to emergency department for further evaluation patient had been exposed to COVID-19 he was positive on March 10, patient was started on dexamethasone 08/17 as well as Remdesivir 06/12 since then he has been doing very well today's on 2 L of oxygen, is feeling much better, denies any shortness breath, wants to go home, if remains clinically stable on 2 L oxygen and no fever will discharge the patient home tomorrow. (2) CHF (congestive heart failure): Qualifiers: Heart failure chronicity: acute on chronic Heart failure type: unspecified Qualified Code(s): I50.9 - Heart failure, unspecified Code(s): I50.9 - Heart failure, unspecified Status: Acute Assessment and Plan: limit fluid hydration continue home medications (3) COVID-19: Code(s): U07.1 - COVID-19 Status: Acute Assessment and Plan: on remdesivir started on 03/12/2020, steroids and albuterol already started, hopeful discharge with home oxygen assessment (4) Diabetes: Code(s): E11.9 - Type 2 diabetes mellitus without complications Status: Acute Assessment and Plan: SSI, insulin, AccuCheck watch for hyperglycemia with steroids continue metformin DS: Summary Hospital Course Reason for hospitalization: Chief complaint: acute hypoxia respiratory failure, chf Narrative: Marcio Rubi is a 79 year old male sent by [facility] for low sat. multiple family members with covid, pt was initially on 15 liters of oxygen down to 5 liters now. pt may be needing oxygen on discharge. 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 History taken from family as pt is confused. lives with daughter, on monday was very sleepy very lethargic was incontinent, two family members are covid positive in the home. Pt has history of dm, copd, chf and multiple stents triple by pass and stroke. Pt is looking unwell with slight cough in the room Hospital Course: Patient is 79-year-old male with history of CABG and stroke patient is mainly being with his daughter is sent patient was seen at the local urgent care and was quite hypoxic oxygen saturation was 70% was brought to emergency department for further evaluation patient had been exposed to COVID-19 he was positive on March 10, patient was started on dexamethasone 08/17 as well as Remdesivir / since then he has been doing very well today's on 2 L of oxygen, is feeling much better, denies any shortness breath, wants to go home, if remains clinically stable on 2 L oxygen and no fever will discharge the patient home today Status at Discharge Functional status at discharge: independent ambulation Overall status at discharge: patient is back to baseline Time Spent with Patient Time attestation: Total time spent providing and/or coordinating discharge services: Patient was seen and examined at the time of the discharge Condition at discharge is stable Code status: Full code. Time spent preparing discharge summary, discharge medications, discussing discharge planning with lining caser and patient is 35 minutes. Time spent: Greater than 30 minutes Exam Narrative: Exam Narrat
[2020-03-16] MEDS: INSULIN ASPART (*BKC) 100 UNITS/ML SUB-Q (13:25)
--- NOTE | 2020-03-16 14:01 | HOMEO2EVAL ---
Home Oxygen Evaluation RC: Home Oxygen (O2) Evaluation Start: 03/15/20 15:45 Freq: ONCE Status: Active Protocol: RPE Activity Type Activity Date Activity User E-Sign Co-Sign Detail Recorded Client Recorded Date Recorded By Document 03/16/20 10:30 [email or web address] [email or web address] 03/16/20 14:00 DJO Document 03/16/20 10:35 [email or web address] [email or web address] 03/16/20 14:00 DJO Document 03/16/20 10:40 [email or web address] [email or web address] 03/16/20 14:00 DJO Document 03/16/20 10:45 [email or web address] [email or web address] 03/16/20 14:00 DJO Document 03/16/20 10:55 [email or web address] [email or web address] 03/16/20 14:00 DJO 03/16/20 03/16/20 03/16/20 10:30 10:35 10:40 Home O2 Evaluation Test Phase Resting Resting Resting Oxygen Delivery Room Air Nasal Cannula Nasal Cannula Oxygen Flow Rate (L/min) 1 2 Pulse Oximetry (90-100 %) 86 L 87 L 91 Pulse Rate (60-100 beats/min) 70 74 72 Treatment Charges O2 Evaluation 03/16/20 03/16/20 10:45 10:55 Home O2 Evaluation Test Phase Exercise Resting Oxygen Delivery Nasal Cannula Nasal Cannula Oxygen Flow Rate (L/min) 2 2 Pulse Oximetry (90-100 %) 90 91 Pulse Rate (60-100 beats/min) 88 70 Treatment Charges
[2020-03-16] MEDS: ACETAMINOPHEN 325 MG TABLET 650 MG PO (14:47)
--- NOTE | 2020-03-16 15:00 | PCRCNOTE ---
HOME O2 EVAL COMPLETE, 2 LITERS AT REST AND WITH ACTIVITY. SET UP WITH [facility] [place] PHONE NUMBER [phone]. TANK HAS BEEN DELIVERED TO PT'S ROOM.
== END 2020-03-16 15:50 | disposition home or self-care (01) | DRG 177 ==
LOC: ANHED 20:00 → ANHIMU 23:45 → ANH3MEDSUR 03-15 02:03 → ANHIMU 03-19 15:02
PROVIDERS: Family Medicine; Admitting Provider Internal Medicine; Emergency Provider Emergency Medicine; Visit Provider Family Medicine
DX: U07.1 COVID-19 (principal); J96.01 Acute respiratory failure with hypoxia; J44.9 Chronic obstructive pulmonary disease, unspecified; I50.9 Heart failure, unspecified; E11.9 Type 2 diabetes mellitus without complications; Z95.5 Presence of coronary angioplasty implant and graft; Z86.73 Personal history of transient ischemic attack (TIA), and cerebral infarction without residual deficits; Z87.891 Personal history of nicotine dependence
CPT/HCPCS: 36415; 36600; 70450; 71045; 80048; 80053; 82805; 83880; 84460; 84484; 85025; 86140; 87635; 93005; 94618; 97110; 97116; 97161; 97165; 97530; 99285; A9270; C9803; J0360; J1650; J1815; J1940; J8540; U0003

== ENCOUNTER 2021-02-16 18:02 | Emergency (ER) | payer MEDICARE, OTHER, SELFPAY ==
[2021-02-16 18:21] VITALS: BP 140/60; PULSE 85; RESP 18; TEMP 36.3; O2SAT 95
--- NOTE | 2021-02-16 18:52 | ED.EXTPRO ---
HPI - Extremity Problem General Chief complaint: Extremity Problem,Nontraumatic Stated complaint: Left Toe Pain History of Present Illness HPI Narrative: This is a 80-year-old male comes in complaining of left great toe pain swelling with some erythema. Patient states that he seen his primary care provider at the [facility] on 1027 and that was not there patient states he is diabetic Related Data Home Medications Medication Instructions Recorded Confirmed Lantus U-100 Insulin 18 unit SUBCUT QPM 03/11/20 03/11/20 alogliptin 12.5 mg PO QAM 03/11/20 03/11/20 atorvastatin 80 mg PO HS 03/11/20 03/11/20 carvedilol 12.5 mg PO Q12H 03/11/20 03/11/20 clopidogrel [Plavix] 75 mg PO QAM 03/11/20 03/11/20 ferrous sulfate 325 mg PO QAM 03/11/20 03/11/20 furosemide [Lasix] 20 mg PO QNOON PRN 03/11/20 03/11/20 furosemide [Lasix] 60 mg PO QAM 03/11/20 03/11/20 levothyroxine 100 mcg PO QAM 03/11/20 03/11/20 metformin 1,000 mg PO BID 03/11/20 03/11/20 venlafaxine [Effexor XR] 75 mg PO DAILY 03/11/20 03/11/20 Allergies Allergy/AdvReac Type Severity Reaction Status Date / Time strawberry Allergy Mild Hives Verified 02/16/21 18:48 morphine Allergy Unknown Stopped Verified 02/16/21 18:48 Breathing Review of Systems Review of Systems: Wound left great toe pain All systems reviewed & are unremarkable except as noted in HPI and below PMFSH Social History Social History Smoking packs per day: 1 Smoking cigarettes per day: 20.0 Years smoked: 30 Smoking pack-years: 30.00 Smoking status: Former smoker Tobacco type: cigarettes Alcohol intake: former Substance use: never Gender identity (if verbalized by the patient): Male Spiritual care concerns: No Comments At time as signature, I have reviewed and agree with nursing past medical, social, surgical and family history. Please see nursing chart for further information. There is no relevant family history pertinent to the presenting complaint. Exam Narrative: GENERAL:Well-appearing, well-nourished, and in no acute distress. HEAD:Normocephalic, atraumatic. EYES: PERRLA and EOMI. ENT: Nares clear, no rhinorrhea or epistaxis. CHEST: Clear to auscultation. No respiratory distress. HEART: Regular rate and rhythm. EXTREMITIES: Normal range of motion. Left great toe with swollen with erythema less small area on the right side of the lateral toenail that is mushy skin still intact . SKIN: Warm, dry, no rash. NEURO: No focal deficits. Alert and oriented x3. Course Course Emergency Course: Ingrown toenail, diabetic ulcer, cellulitis, Vital Signs Vital signs: Vital Signs Temperature 97.4 F L 02/16/21 18: Pulse Rate 85 02/16/21 18:21 Respiratory Rate 18 02/16/21 18:21 Blood Pressure 140/60 02/16/21 18:21 Pulse Oximetry 95 02/16/21 18:21 Temperature 97.4 F L 02/16/21 18:21 Pulse Rate 85 02/16/21 18:21 Respiratory Rate 18 02/16/21 18:21 Blood Pressure 140/60 02/16/21 18:21 Pulse Oximetry 95 02/16/21 18:21 Discharge Plan Discharge Clinical Impression: Cellulitis of great toe of left foot, Ingrown nail Patient Disposition: Home, Self-Care Condition: Stable Instructions: Antibiotic Form, Cellulitis (ED), Ingrown Nail (ED) Additional Instructions: Use skin creams/lotion, such as those containing calamine or pramoxine to reduce itchiness Avoid scratching when possible to prevent worsening of the condition and disruption of the skin that could lead to bacterial infection To relieve itching, place a cool washcloth or some ice over the area that itches, rather than scratching Return to the office or seek ER visit if condition is not improving or worsens with fever, swelling, difficulty breathing or swallowing. PLEASE MAKE SURE THAT YOU WEAR A SOCK AND MAKE SURE YOU TAKE ALL OF THE MEDICATION AND YOU NEED TO SEE SCALPING MACHINE OPERATOR Prescriptions: New cephalexin 500 mg capsule 5
== END 2021-02-16 19:02 | disposition home or self-care (01) ==
PROVIDERS: Emergency Provider Nurse Practitioner Family
DX: L03.032 Cellulitis of left toe (principal); L60.0 Ingrowing nail; Z87.891 Personal history of nicotine dependence; Z86.73 Personal history of transient ischemic attack (TIA), and cerebral infarction without residual deficits; I11.0 Hypertensive heart disease with heart failure; I50.9 Heart failure, unspecified; Z95.1 Presence of aortocoronary bypass graft; I25.10 Atherosclerotic heart disease of native coronary artery without angina pectoris; E78.00 Pure hypercholesterolemia, unspecified; E11.9 Type 2 diabetes mellitus without complications; E03.9 Hypothyroidism, unspecified
CPT/HCPCS: 99213; G0463

== ENCOUNTER 2021-09-02 17:51 | Inpatient (IN) | payer MEDICARE, OTHER, SELFPAY ==
[2021-09-02] VITALS (8 sets, daily range): BP systolic 100–149; BP diastolic 57–86; PULSE 88–98; RESP 18–26; TEMP 36.6–36.8; O2SAT 98–100; BMI 27.8
--- NOTE | ~2021-09-02 | XR_ITS ---
XR chest 1V portable 09/02/2021 18:06 Indication: ST elevation. Dyspnea. Procedure: AP portable chest Comparison: Comparison to multiple prior studies sequentially, with oldest reviewed study dated 07/26. Findings: Status post median sternotomy for CABG. Cardiomegaly. Mild interstitial edema. Small right pleural effusion. No pneumothorax. There are calcified granulomas in the left lung base. Impression: 1: Cardiomegaly with mild interstitial edema. Reviewed, dictated and finalized at location A. Impression: 1: Cardiomegaly with mild interstitial edema.
--- NOTE | 2021-09-02 17:54 | PC.NURSE ---
STEMI 1737 - Over headed page 1737 - Terri 1738 - Dr Aleman notified 1740 - [place] Notified 1756 - Dr Aleman notified ER that he is stuck in [place] hour traffic no ETA given
--- NOTE | 2021-09-02 17:58 | ECG_ITS ---
Measurements Intervals Abrams Rate: 0 P: VA: 0 QRS: QRSD: 0 T: QT: 0 QTc: 0 Interpretive Statements SINUS TACHYCARDIA ATRIAL AND VENTRICULAR PREMATURE COMPLEXES INTRAVENTRICULAR CONDUCTION DELAY LEFT VENTRICULAR HYPERTROPHY WITH ST-T CHANGE INFERIOR INFARCT, AGE INDETERMINATE ST-T WAVE ABNORMALITY IN ANTEROLAT/HIGH LAT LEADS- CONSIDER ISCHEMIA BASELINE ARTIFACT- I, II, III, AVR, AVL, AVF, V1-V3 ABNORMAL ECG Electronically Signed On 09-02-2021 20:39:28 CDT by Donald Davison D.O.
--- NOTE | 2021-09-02 17:59 | ED.CHESTPAIN ---
HPI - Chest Pain General Chief Complaint: Chest Pain Stated Complaint: STEMI Time Seen by Provider: 09/02/21 17:58 History of Present Illness HPI narrative: Patient is a 80-year-old male brought in by EMS secondary to a STEMI alert. Prior to arrival ECG strips sent shows ST elevation in the inferior leads. Code STEMI alert initiated. Discussed with Dr. Aleman and he is on his way. EMS states patient had been complaining of chest pain and shortness of breath that started this morning. Patient currently denies any chest pain, but admits to having it earlier, and states that his shortness of breath is nothing more than his usual. According to EMS patient was found on the floor by family members lethargic but responsive, was complaining of chest pain and shortness of breath at that time. Patient is a poor historian. Related Data Home Medications Medication Instructions Recorded Confirmed alogliptin 12.5 mg tablet 12.5 mg PO QAM 03/11/20 03/11/20 atorvastatin 40 mg tablet 80 mg PO HS 03/11/20 03/11/20 carvedilol 12.5 mg tablet 12.5 mg PO Q12H 03/11/20 03/11/20 clopidogrel 75 mg tablet (Plavix) 75 mg PO QAM 03/11/20 03/11/20 ferrous sulfate 325 mg (65 mg 325 mg PO QAM 03/11/20 03/11/20 iron) tablet furosemide 20 mg tablet (Lasix) 20 mg PO QNOON PRN Edema 03/11/20 03/11/20 furosemide 20 mg tablet (Lasix) 60 mg PO QAM 03/11/20 03/11/20 insulin glargine 100 unit/mL 18 unit subcut QPM 03/11/20 03/11/20 subcutaneous solution (Lantus U-100 Insulin) levothyroxine 100 mcg tablet 100 mcg PO QAM 03/11/20 03/11/20 metformin 500 mg tablet,extended 1,000 mg PO BID 03/11/20 03/11/20 release 24 hr venlafaxine 75 mg capsule,extended 75 mg PO DAILY 03/11/20 03/11/20 release 24 hr (Effexor XR) Allergies Allergy/AdvReac Type Severity Reaction Status Date / Time strawberry Allergy Mild Hives Verified 02/16/21 18:48 morphine Allergy Unknown Stopped Verified 02/16/21 18:48 Breathing Review of Systems Review of Systems: All systems reviewed & are unremarkable except as noted in HPI and below Constitutional: Constitutional: Denies body ache(s), Denies chills, Denies excessive sweating, Denies fatigue, Denies fever(s), Denies headache(s), Denies lethargy, Denies malaise, Denies weakness and Denies weight loss Eyes: Eyes: Denies blurry vision, Denies change in vision and Denies loss of vision ENT: Denies dizziness, Denies ear discharge, Denies headache(s), Denies lip swelling, Denies epistaxis, Denies nasal congestion, Denies neck pain, Denies throat swelling and Denies tongue swelling Cardiovascular: Cardiovascular: Denies diaphoresis, Denies rapid heart rate, Denies edema, Denies irregular heart rhythm, Denies lightheadedness and Denies palpitations Respiratory: Respiratory: Denies chest congestion, Denies cough and Denies hemoptysis Gastrointestinal: Gastrointestinal: Denies abdominal pain, Denies melena, Denies hematochezia, Denies diarrhea, Denies nausea, Denies vomiting and Denies hematemesis Musculoskeletal: Musculoskeletal: Denies abnormal gait, Denies deformity, Denies joint swelling, Denies limited range of motion, Denies neck pain and Denies numbness Neurologic: Denies Abnormal speech present, Denies abnormal gait, Denies confusion, Denies dizziness, Denies headache(s), Denies focal weakness, Denies loss of vision, Denies numbness, Denies Other visual disturbances, Denies Sensory deficit (Neuro) and Denies weakness Psychiatric: Psychiatric: Denies confusion, Denies depression, Denies auditory hallucinations, Denies homicidal ideation and Denies suicidal ideation Endocrine: Endocrine: Denies cold intolerance, Denies excessive sweating, Denies fatigue, Denies heat intolerance and Denies palpitations Hematologic/Lymphatic: Hematologic/Lymphatic: Denies easy bleeding and Denies easy bruising Allergic/Immunologic: Allergic/Immunologic: Denies lip swelling, Denies throat swelling and Denies tongue swelling [facility] [address] Histo
[2021-09-02 18:10] LABS: Basophils Percent Auto 0.3 % (0.2-1.2); Eosinophils Percent Auto 0.2 % (0-4.4); Hematocrit 36.6 % (42.0-52.0); Hemoglobin 12.1 g/dL (14.0-18.0); Immature Granulocyte Absolute 0.06 K/mm3 (0.00-0.031); Immature Granulocyte Percent A 0.6 % (0-0.5); Lymphocytes Absolute Auto 1.15 K/mm3 (0.9-3.2); Lymphocytes Percent Auto 10.9 % (18.3-44.2); Mean Corpuscular HGB Conc 33.1 g/dl (32-36); Mean Corpuscular Hemoglobin 30.3 pg (26-34); Mean Corpuscular Volume 91.5 fl (80-100); Mean Platelet Volume 11.1 fl (7.4-10.4); Monocytes Absolute Auto 0.8 K/mm3 (0.1-0.6); Monocytes Percent Auto 7.9 % (2.6-8.5); Neutrophils Absolute Auto 8.5 K/mm3 (1.3-6.7); Neutrophils Percent Auto 80.1 % (45.5-73.1); Platelet Count Result 176 k/mm3 (150-375); Red Cell Distribution Width 14.6 % (11.5-14.5); White Blood Count 10.6 K/mm3 (4.5-10.0)
[2021-09-02 18:20] LABS: Alanine Aminotransferase 22 U/L (6-50); Albumin Level 3.8 g/dL (3.5-5.1); Alkaline Phosphatase 103 U/L (38-126); Anion Gap 9 mmol/L (8-16); Aspartate Amino Transferase 37 U/L (17-59); Bilirubin,Total 1.1 mg/dL (0.2-1.3); Blood Urea Nitrogen 25 mg/dL (9-20); Carbon Dioxide 26 mmol/L (22-30); Chloride 102 mmol/L (98-107); Cholesterol 137 mg/dL (0-200); Estimated CRCL calculation 47 ml/min; Estimated Glomerular Filt Rate 59; Glucose 234 mg/dL (65-110); HDL Direct 34 mg/dL; Sodium 137 mmol/L (137-145); Triglycerides 137 mg/dL (<150)
[2021-09-02 18:21] LABS: INR 1.1
[2021-09-02 18:22] LABS: Partial Thromboplastin Time 28.3 SECONDS (22.3-36.8)
--- NOTE | 2021-09-02 18:27 | PC.NURSE ---
gave pt 324mg of aspirin and 4000 units of Heparin at 1805 per EDP Shin. VORB. Normal saline at KVO rate initiated at 1805.
[2021-09-02 18:32] LABS: LDL Cholesterol Direct 64 mg/dL
--- NOTE | 2021-09-02 18:36 | PC.NURSE ---
try out person at bedside at this time.
--- NOTE | 2021-09-02 19:02 | PM.CNCAR ---
Assessment and Plan Assessment and plan (1) CHF (congestive heart failure): Qualifiers: Heart failure chronicity: acute on chronic Heart failure type: unspecified Qualified Code(s): I50.9 - Heart failure, unspecified Code(s): I50.9 - Heart failure, unspecified Status: Acute Plan This is a 80-year-old man apparently has extensive history of multivessel coronary disease and a severe ischemic cardiomyopathy by the family's description. He presents to the hospital with weakness some difficulty breathing but no chest pain. Furthermore the daughter is caring for the patient indicates that his genomics scientist have told him at the [facility] that there is likely no further revascularization that can be reasonably offered to him. For that reason I do not believe there is any strong argument to bring this gentleman to the cardiac laborer cutting tool here at [place]. He is in some congestive heart failure clinically and he needs to be diuresed. His troponin levels are elevated so I would heparinize him for at least 24 hours while we will trend that. The remainder of his medical regimen for congestive heart failure as described in the note should be continued I will also continue his dual anti-platelet therapy. Will follow him with you however we do not anticipate an invasive evaluation here at [facility] as I mentioned above Tyler Aleman MD [facility] History of Present Illness History of Present Illness Consult date/time: 09/02/21 19:02 Reason For Visit: STEMI Narrative: This is a 80-year-old man who I am seeing in the emergency room because I have been summoned and STEMI team has been activated because of ST-elevation [place] that was declared by they EMS in the field. This is a patient who has an extensive cardiac history but has received an none of his cardiac care at [facility] therefore there are no direct records available for my review. The history is primarily obtained from the patient's daughter who is in the emergency room lives with him some of the history is also obtained from the patient himself. He is a somewhat difficult historian. In any event the patient was brought here by ambulance because the daughter states he was starting to feel unwell earlier in the day with symptoms of generalized weakness and some shortness of breath he indicated he had to get up from the table and go to the restroom to have a bowel movement. He came back and found on felt unwell. She came back to check on him and found him had fallen to the floor. He was not reporting any chest pain pressure or heaviness during any of this time according to the daughter and according to direct questioning to the patient. He has been having more shortness of breath and he has had in the recent weeks and months. He has noticed some increasing lower extremity edema as well. The electrocardiogram shows a sinus mechanism with intraventricular conduction delay morphology consistent with an incomplete left bundle branch block and deep inferior Q-waves with some inferior ST segment elevation. The patient's daughter states that the gentleman has a long history of coronary artery disease dating back to the mid when he underwent a 3 vessel bypass operation at [facility]. His physicians and genomics scientist the follow him a at the [facility]. He has had several interventional procedures for revascularization since his bypass according to the daughter the most recent 1 of these was done at the and she has been told by physicians there and at the [facility] that his heart is extremely weak and also importantly that there probably is nothing else that can be offered to him in terms of revascularization. He has a history of previous cigarette smoking some peripheral vascular disease in the lower extremities as well as in the carotids history of dyslipidemia and non insulin-dependent diabetes. Troponin level on presentation is
--- NOTE | 2021-09-02 19:07 | PC.NURSE ---
Report received from Venita HUTCHINSON and care of pt assumed at this time.
[2021-09-02] MEDS: HEPARIN SOD/D5W 100 UNITS/ML 25,000 UNITS/250 ML BAG 10 UNITS IV CONT (19:39)
[2021-09-02] MEDS: FUROSEMIDE INJ 40 MG/4 ML VIAL IV PUSH (19:39)
--- NOTE | 2021-09-02 21:09 | PM.IMHP ---
H&P: [facility] History of Present Illness Date/Time: 09/02/21 21:09 Chief Complaint: chest pain Narrative: 80-year-old male with significant cardiac history brought in on a STEMI alert. Per ER chart, patient had chest pain shortness a breath since this morning. Patient was found on the floor at home by family members lethargic but responsive, complaining of chest pain shortness a breath. 911 was called when EMS brought him to the ER with ST-elevation strips in the inferior leads sent to head. Cardiology called and met the patient in the ER. 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 Heparin drip and Lasix IV given. Patient currently asymptomatic and resting comfortably. He denies any current chest pain or shortness of breath. He denies nausea, vomiting or diarrhea. No fevers or chills. He understands that he has severe heart disease but can no longer tolerate interventional treatment options. He is in agreement with optimizing his medical management. I am unable to find old cardiac records, no echoes or Cardiology notes are available to me. Would recommend confirming past heart disease history with cardiology year family medicine and obtaining records from prior catheterizations or echoes. Review of Systems Review of Systems: Twelve point review of systems was reviewed and is negative except as noted in the HPI [facility] Family History Family History Father Heart disease Social History Social History Smoking packs per day: 1 Smoking cigarettes per day: 20.0 Years smoked: 30 Smoking pack-years: 30.00 Smoking status: Former smoker Alcohol intake: former Substance use: never Gender identity (if verbalized by the patient): Male Spiritual care concerns: No Meds Home Medications and Allergies Home Medications Medication Instructions Recorded Confirmed Type atorvastatin 40 mg tablet 80 mg PO HS 03/11/20 09/02/21 History carvedilol 12.5 mg tablet 12.5 mg PO Q12H 03/11/20 09/02/21 History clopidogrel 75 mg tablet (Plavix) 75 mg PO QAM 03/11/20 09/02/21 History ferrous sulfate 325 mg (65 mg 325 mg PO QAM 03/11/20 09/02/21 History iron) tablet furosemide 20 mg tablet (Lasix) 20 mg PO QNOON PRN Edema 03/11/20 09/02/21 History furosemide 20 mg tablet (Lasix) 60 mg PO QAM 03/11/20 09/02/21 History insulin glargine 100 unit/mL 18 unit subcut QPM 03/11/20 09/02/21 History subcutaneous solution (Lantus U-100 Insulin) levothyroxine 100 mcg tablet 100 mcg PO QAM 03/11/20 09/02/21 History metformin 500 mg tablet,extended 1,000 mg PO BID 03/11/20 09/02/21 History release 24 hr venlafaxine 75 mg capsule,extended 75 mg PO DAILY 03/11/20 09/02/21 History release 24 hr (Effexor XR) aspirin 81 mg capsule 81 mg PO DAILY 09/02/21 09/02/21 History finasteride 5 mg tablet 5 mg PO DAILY 09/02/21 09/02/21 History hydralazine 10 mg tablet 10 mg PO BID 09/02/21 09/02/21 History tamsulosin 0.4 mg capsule (Flomax) 0.4 mg PO DAILY 09/02/21 09/02/21 History Allergies Allergy/AdvReac Type Severity Reaction Status Date / Time strawberry Allergy Mild Hives Verified 09/02/21 18:15 morphine Allergy Unknown Stopped Verified 09/02/21 18:15 Breathing Vital Signs Vital Signs - 24 hr 09/02/21 17:49 09/02/21 18:08 09/02/21 18:08 Temperature 97.8 F Pulse Rate 95 Respiratory Rate 20 Blood Pressure 149/75 H Pulse Oximetry 100 100 100 Oxygen Delivery Nasal Cannula Nasal Cannula Nasal Cannula Oxygen Flow Rate 2 2 2 09/02/21 18:18 09/02/21 19:06 Temperature Pulse Rate 98 90 Respiratory Rate 26 H 18 Blood Pressure 134/76 135/72 Pulse Oximetry 100 98 Oxygen Delivery Oxygen Flow Rate
--- NOTE | 2021-09-02 21:37 | ADMGEN ---
This patient, Marcio Rubi, was admitted to IMU Room 211-01 at 2137. Patient/family oriented to hospital policies and general routines including ID bracelet, bed and alarms, visiting hours, pain management, procedures, bathroom and other care routines, personal items, smoking policy, room service/diet, and visiting hours. Information on how to activate the Rapid Response Team has been discussed. Patient/Family are encouraged to report perceived risks to care and to ask questions if they do not understand what they are told or what they should do.
[2021-09-03] VITALS (15 sets, daily range): BP systolic 113–132; BP diastolic 60–83; PULSE 70–95; RESP 16–24; TEMP 36.2–37.2; O2SAT 96–100
--- NOTE | 2021-09-03 | ECHO_ITS ---
Patient Info Name: Marcio Rubi Age: 80 years : 1940 Gender: Male Ht: 70 in Wt: 194 lbs BSA: 2.10 m2 HR: 76 bpm BP: 128 / 60 mmHg Heart Rhythm: Sinus Rhythm Technical Quality: Poor Exam Date: 09/03/2021 1:23 PM Exam Location: [facility] Pulmonary Exam Room: [facility] Patient Status: Inpatient Admit Date: 09/02/2021 Staff Ordering Physician: Tyler Aleman MD Executive Advisor: Brittaney Jarquin RDCS Attending Provider: Gertrude Cardoza DO Referring Physician: Love DAVEY; Exam Type: CA echo dop color flow w con Study Info Indications - chf hx/o cad cabg Complete two-dimensional, color flow and Doppler transthoracic echocardiogram is performed with contrast to opacify the left ventricle and to improve the deliniation of the left ventricle endocardial borders. Contrast/Agitated Saline Contrast/Ag. Saline: Definity Amount: 2.00 ml Administered By: Brittaney Jarquin [facility] Existing IV Access: Yes IV Access Condition: patent with no signs of infiltration Reason for Poor Study: patient body habitus Summary 1. Left ventricular chamber dimension is severely enlarged. 2. Left ventricular systolic function is severely reduced, estimated at 15-20%. 3. The inferior wall is frankly akinetic, the remainder is severely hypodynamic. 4. Biatrial dilation. 5. Suspect prior mitral valve ring annuloplasty. 6. At least moderately elevated pulmonary artery pressure. Left Ventricle Left ventricular chamber dimension is severely enlarged. Left ventricular systolic function is severely reduced, estimated at 15-20%. The left ventricular diastolic function is grade I diastolic dysfunction. The inferior wall is frankly akinetic, the remainder is severely hypodynamic. Right Ventricle Right ventricular chamber dimension is mildly enlarged. Left Atria Left atrial chamber dimension is moderately enlarged. Right Atria Right atrial chamber dimension is moderately enlarged. Aortic Valve The aortic valve is trileaflet. There is mild aortic valve sclerosis. Pulmonic Valve The pulmonic valve is not well visualized. Mitral Valve The mitral valve has normal leaflets. There is trace mitral valve regurgitation. The mitral valve annulus is mildly calcified. Tricuspid Valve The tricuspid valve leaflets are normal. There is mild tricuspid valve regurgitation. Pericardium/Pleural The pericardium appears normal. Aorta The aortic root size at the sinus of Valsalva is normal. Left Ventricular Outflow Tract Name Value Normal LVOT 2D LVOT Diameter 2.06 cm LVOT Doppler LVOT Peak Gradient 3 mmHg LVOT Mean Gradient 2 mmHg LVOT VTI 16.45 cm LVOT VTI/AV VTI Ratio 0.75 LVOT Stroke Volume 54.70 ml LVOT CO 11.65 l/min LVOT CI 5.54 L/min/m2 Pulmonic Valve Name
[2021-09-03 01:56] LABS: INR 1.3; Partial Thromboplastin Time 51.9 SECONDS (22.3-36.8); Prothrombin Time 15.4 Seconds (11.1-14.7)
[2021-09-03 02:04] LABS: Basophils Percent Auto 0.2 % (0.2-1.2); Hematocrit 33.2 % (42.0-52.0); Hemoglobin 11.1 g/dL (14.0-18.0); Immature Granulocyte Absolute 0.03 K/mm3 (0.00-0.031); Immature Granulocyte Percent A 0.3 % (0-0.5); Lymphocytes Absolute Auto 0.96 K/mm3 (0.9-3.2); Lymphocytes Percent Auto 10.9 % (18.3-44.2); Mean Corpuscular HGB Conc 33.4 g/dl (32-36); Mean Corpuscular Hemoglobin 30.2 pg (26-34); Mean Corpuscular Volume 90.5 fl (80-100); Mean Platelet Volume 11.6 fl (7.4-10.4); Monocytes Absolute Auto 0.7 K/mm3 (0.1-0.6); Monocytes Percent Auto 7.5 % (2.6-8.5); Neutrophils Absolute Auto 7.1 K/mm3 (1.3-6.7); Neutrophils Percent Auto 81.1 % (45.5-73.1); Platelet Count Result 180 k/mm3 (150-375); Red Blood Count 3.67 M/mm3 (4.6-6.20); Red Cell Distribution Width 14.6 % (11.5-14.5); White Blood Count 8.8 K/mm3 (4.5-10.0)
[2021-09-03 02:44] LABS: Basophils Percent Auto 0.1 % (0.2-1.2); Hematocrit 32.4 % (42.0-52.0); Hemoglobin 10.7 g/dL (14.0-18.0); Immature Granulocyte Absolute 0.03 K/mm3 (0.00-0.031); Immature Granulocyte Percent A 0.3 % (0-0.5); Lymphocytes Percent Auto 14.9 % (18.3-44.2); Mean Corpuscular Hemoglobin 30.1 pg (26-34); Mean Corpuscular Volume 91.3 fl (80-100); Mean Platelet Volume 11.1 fl (7.4-10.4); Monocytes Absolute Auto 0.8 K/mm3 (0.1-0.6); Monocytes Percent Auto 8.7 % (2.6-8.5); Neutrophils Absolute Auto 6.6 K/mm3 (1.3-6.7); Platelet Count Result 164 k/mm3 (150-375); Red Blood Count 3.55 M/mm3 (4.6-6.20); Red Cell Distribution Width 14.6 % (11.5-14.5); White Blood Count 8.7 K/mm3 (4.5-10.0)
[2021-09-03 02:55] LABS: INR 1.3; Prothrombin Time 15.5 Seconds (11.1-14.7)
[2021-09-03 02:56] LABS: Partial Thromboplastin Time 57.8 SECONDS (22.3-36.8)
[2021-09-03] MEDS: HEPARIN SODIUM 5,000 UNITS/ML VIAL 3000 UNITS IV PUSH (03:10)
[2021-09-03] MEDS: LEVOTHYROXINE SODIUM 100 MCG TABLET PO (06:17)
[2021-09-03 08:20] LABS: Glucose Point of Care 276 mg/dl (65-105)
[2021-09-03] MEDS: hydrALAZINE 10 MG TABLET PO ×2 (10:24→20:42)
[2021-09-03] MEDS: carvediloL 12.5 MG TABLET PO ×2 (10:24→20:42)
[2021-09-03] MEDS: ASPIRIN 81 MG CHEWABLE TABLET PO (10:24)
[2021-09-03] MEDS: VENLAFAXINE HCL XR 75 MG CAP.ER.24H PO (10:24)
[2021-09-03] MEDS: FUROSEMIDE INJ 40 MG/4 ML VIAL IV PUSH ×2 (10:24→20:42)
[2021-09-03 10:25] LABS: Basophils Percent Auto 0.3 % (0.2-1.2); Eosinophils Absolute Auto 0.1 K/mm3 (0-0.3); Eosinophils Percent Auto 0.6 % (0-4.4); Hematocrit 32.4 % (42.0-52.0); Hemoglobin 10.5 g/dL (14.0-18.0); Immature Granulocyte Absolute 0.02 K/mm3 (0.00-0.031); Immature Granulocyte Percent A 0.2 % (0-0.5); Lymphocytes Absolute Auto 1.47 K/mm3 (0.9-3.2); Mean Corpuscular HGB Conc 32.4 g/dl (32-36); Mean Corpuscular Volume 92.6 fl (80-100); Mean Platelet Volume 11.2 fl (7.4-10.4); Monocytes Absolute Auto 0.7 K/mm3 (0.1-0.6); Neutrophils Absolute Auto 6.4 K/mm3 (1.3-6.7); Neutrophils Percent Auto 73.9 % (45.5-73.1); Platelet Count Result 158 k/mm3 (150-375); Red Cell Distribution Width 14.8 % (11.5-14.5); White Blood Count 8.6 K/mm3 (4.5-10.0)
[2021-09-03] MEDS: FERROUS SULFATE 324 MG TABLET PO (10:27)
[2021-09-03] MEDS: TAMSULOSIN HCL 0.4 MG CAPSULE PO (10:27)
[2021-09-03] MEDS: FINASTERIDE 5 MG TABLET PO (10:27)
--- NOTE | 2021-09-03 10:33 | PM.PNCARD ---
Progress Note: A&P Assessment and Plan (1) Acute respiratory failure with hypoxia: Code(s): J96.01 - Acute respiratory failure with hypoxia Status: Acute Plan 80-year-old man with: Decompensated congestive heart failure presumed diagnosis of systolic failure. Patient in my opinion it does not have an acute coronary syndrome as I described in my consultation note. Request of records from the most recent cardiac catheterization procedure at the [facility] has been made those records of course have yet to be received. Would recommend continuing his current regimen and probably IV furosemide for at least another 24 hours. Once he is euvolemic I would transition him back to oral furosemide and he can then be discharged. 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 I will go ahead and order a follow-up echocardiogram while he is here. The records might shed some light on so why he is being treated with hydralazine verses a more effective vasodilators Tyler Aleman MD [facility] Subjective Date/time seen: Date of service: 09/03/21 10:33 Interval history: Follow-up visit in this 80-year-old man with: Apparent history of coronary disease and reported history of severe ischemic cardiomyopathy presented to the emergency room yesterday with shortness of breath decompensated heart failure. STEMI was called in the field which I canceled after seeing the patient in the emergency department. He was not reporting in at acute chest pain event. He feels better this morning after receiving some IV furosemide overnight. Discussion with the patient and his family in the room regarding his medications. Specifically I was asking about his vaso dilator being hydralazine verses a Charlie inhibitor, ARB. They do not have any recollection as to why hydralazine is being used. None the less he feels better. Troponin levels remained moderately elevated but flat. Exam Const: General: comfortable and no acute distress Other: Elderly gentleman no significant distress this morning clearly much more comfortable than he was last evening HENMT: Mouth: Yes moist mucous membranes Eyes: Sclera: sclerae normal Pupils: Equal, round and reactive pupils present Neck: Neck: supple and no JVD Other: Carotid upstrokes are normal bilaterally Resp: Effort & Inspection: normal respiratory effort Other: Patient has scant basilar rales significantly improved from last night's exam Cardio: Rate: regular rate Rhythm: regular rhythm Heart sounds: Gallop heart sound present Other: S3 is audible no significant murmur GI: GI Palp: Yes Soft to palpation Auscultation: normal bowel sounds Skin: General skin exam: normal color Neuro: Other: Normal cognition Extrem: Other: No significant edema very poor arterial pulses below the femoral triangle Objective Data Vital Signs Vital Signs: Vital Signs - 24 hr 09/02/21 17:49 09/02/21 18:08 09/02/21 18:08 Temperature 36.6 C Pulse Rate 95 Respiratory Rate 20 Blood Pressure 149/75 H Pulse Oximetry 100 100 100 Oxygen Delivery Nasal Cannula Nasal Cannula Nasal Cannula Oxygen Flow Rate 2 2 2 09/02/21 18:18 09/02/21 19:06 09/02/21 21:24 Temperature Pulse Rate 98 90 88 Respiratory Rate 26 H 18 18 Blood Pressure 134/76 135/72 136/57 L Pulse Oximetry 100 98 98 Oxygen Delivery Oxygen Flow Rate 09/02/21 21:40 09/02/21 22:04 09/02/21 22:04 Temperature 36.8 C Pulse Rate 88 88 88 Respiratory Rate 20 20 Blood Pressure 100/86 Pulse Oximetry 99 99 Oxygen Delivery Nasal Cannula Oxygen Flow Rate 2 09/03/21 00:00 09/03/21 00:00 09/03/21 00:00 Temperature 36.2 C L Pulse Rate 85 87 84 Respiratory Rate 20 16 Blood Pres
[2021-09-03] MEDS: CLOPIDOGREL BISULFATE 75 MG TABLET PO (10:34)
[2021-09-03 10:38] LABS: Partial Thromboplastin Time 82.6 SECONDS (22.3-36.8)
[2021-09-03 10:43] LABS: Alanine Aminotransferase 18 U/L (6-50); Albumin Level 3.4 g/dL (3.5-5.1); Alkaline Phosphatase 83 U/L (38-126); Anion Gap 6 mmol/L (8-16); Aspartate Amino Transferase 26 U/L (17-59); Bilirubin,Total 0.9 mg/dL (0.2-1.3); Blood Urea Nitrogen 27 mg/dL (9-20); Calcium 9.4 mg/dL (8.4-10.2); Carbon Dioxide 30 mmol/L (22-30); Chloride 98 mmol/L (98-107); Estimated CRCL calculation 51 ml/min; Estimated Glomerular Filt Rate > 60; Glucose 337 mg/dL (65-110); Potassium 3.9 mmol/L (3.4-5.0); Sodium 134 mmol/L (137-145)
[2021-09-03 12:20] LABS: Glucose Point of Care 284 mg/dl (65-105)
[2021-09-03] MEDS: PERFLUTREN LIPID MICROSPHERES 1.5 ML VIAL DILUTED TO 10 ML TOTAL VOLUME IV PUSH (13:39)
--- NOTE | 2021-09-03 13:39 | IVDEFINITY ---
Prior to administration of IV Definity the patient was educated on the risks and benefits of the imaging enhancing agent including potential adverse side effects. The patient verbalized understanding. Allergies were verified. No exclusion criteria were identified and at least one of the following inclusion criteria were met: 1) physician request, 2) patient technically difficult to image (per the [place] [employer]chocardi[employer] guidelines of two or more segments not discernable within the apical view), or 3) questionable left ventricular function. ?
--- NOTE | 2021-09-03 15:41 | PM.IMPN ---
Progress Note: A&P Assessment and Plan (1) ST elevation (STEMI) myocardial infarction: Code(s): I21.3 - ST elevation (STEMI) myocardial infarction of unspecified site Status: Acute Assessment and Plan: medical management per Cardiology, continue heparin drip and Lasix 09/03/2021 interval history: patient with history of severe coronary artery disease now with a elevated tropes and chest pain, patient seen by Cardiology unable to provide any intervention as patient coronary arteries and now unamenable to any intervention, recommending medical management, health coach recommend heparin drip for 1 day, will continue to monitor, will have a PT OT evaluate the patient patient will benefit going to acute rehab, patient states he is feeling much currently denies any chest pain or shortness of breath is granddaughter is present in the room, (2) Diabetes: Code(s): E11.9 - Type 2 diabetes mellitus without complications Status: Acute Assessment and Plan: Accu-Cheks q.a.c. and q.h.s., continue home medications (3) CHF (congestive heart failure): Qualifiers: Heart failure chronicity: acute on chronic Heart failure type: unspecified Qualified Code(s): I50.9 - Heart failure, unspecified Code(s): I50.9 - Heart failure, unspecified Status: Acute Assessment and Plan: defer management to Cardiology, do need to get copies of old records or may need to order an echo, will hold off on ordering this for now, obtain old records Subjective Date/time seen: 09/03/21 15:41 HPI: 80-year-old male with significant cardiac history brought in on a STEMI alert.? Per ER chart, patient had chest pain shortness a breath since this morning.? Patient was found on the floor at home by family members lethargic but responsive, complaining of chest pain shortness a breath.? 911 was called when EMS brought him to the ER with ST-elevation strips in the inferior leads sent to head.? Cardiology called and met the patient in the ER. ? 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 Heparin drip and Lasix IV given.? Patient currently asymptomatic and resting comfortably.? He denies any current chest pain or shortness of breath.? He denies nausea, vomiting or diarrhea.? No fevers or chills.? He understands that he has severe heart disease but can no longer tolerate interventional treatment options.? He is in agreement with optimizing his medical management. 09/03/2021 interval history: patient with history of severe coronary artery disease now with a elevated tropes and chest pain, patient seen by Cardiology unable to provide any intervention as patient coronary arteries and now unamenable to any intervention, recommending medical management, health coach recommend heparin drip for 1 day, will continue to monitor, will have a PT OT evaluate the patient patient will benefit going to acute rehab, patient states he is feeling much currently denies any chest pain or shortness of breath is granddaughter is present in the room, Review of Systems Review of Systems: Twelve point review of systems was reviewed and is negative except as noted in the HPI Exam Narrative: Patient is comfortable, NAD HEENT: eyes are clear and none icteric LUNGS: bilateral fair air entry with rales and rhonchi HEART: RR S1S2 ABD: BS+, Soft and nontender Lower extremities: no edema SKIN: nonjaundiced Neuro: grossly intact. Objective Data Vital Signs Vital Signs: Vital Signs - 24 hr 09/02/21 17:49 09/02/21 18:08 09/02/21 18:08 Temperature 97.8 F Pulse Rate 95 Respiratory Rate 20 Blood Pressure 149/75 H Pulse Oximetry 100 100 100 Oxygen Delivery Nasal Cannula Nasal Cannula Nasal Cannula Oxygen Flow Rate 2 2 2 09/02/21 18:18 0
[2021-09-03 16:29] LABS: Glucose Point of Care 378 mg/dl (65-105)
[2021-09-03] MEDS: INSULIN GLARGINE (*BKC) 100 UNITS/ML 18 UNITS SUB-Q (17:14)
[2021-09-03] MEDS: INSULIN ASPART (*BKC) 100 UNITS/ML SUB-Q (17:14)
[2021-09-03] MEDS: ATORVASTATIN 40 MG TABLET 80 MG PO (20:42)
[2021-09-03 21:10] LABS: Glucose Point of Care 274 mg/dl (65-105)
[2021-09-04] VITALS (7 sets, daily range): BP systolic 106–126; BP diastolic 52–70; PULSE 77–149; RESP 20–24; TEMP 36.4–36.9; O2SAT 90–98
[2021-09-04 05:14] LABS: Alanine Aminotransferase 19 U/L (6-50); Albumin Level 3.2 g/dL (3.5-5.1); Alkaline Phosphatase 87 U/L (38-126); Anion Gap 3 mmol/L (8-16); Aspartate Amino Transferase 23 U/L (17-59); Bilirubin,Total 1.1 mg/dL (0.2-1.3); Blood Urea Nitrogen 28 mg/dL (9-20); Calcium 9.3 mg/dL (8.4-10.2); Carbon Dioxide 30 mmol/L (22-30); Chloride 101 mmol/L (98-107); Estimated CRCL calculation 51 ml/min; Estimated Glomerular Filt Rate > 60; Glucose 180 mg/dL (65-110); Magnesium 1.8 mg/dL (1.6-2.3); Potassium 3.5 mmol/L (3.4-5.0); Sodium 134 mmol/L (137-145)
[2021-09-04 07:45] LABS: Glucose Point of Care 175 mg/dl (65-105)
[2021-09-04] MEDS: LEVOTHYROXINE SODIUM 100 MCG TABLET PO (08:28)
[2021-09-04] MEDS: carvediloL 12.5 MG TABLET PO (08:31)
[2021-09-04] MEDS: ASPIRIN 81 MG CHEWABLE TABLET PO (08:31)
[2021-09-04] MEDS: CLOPIDOGREL BISULFATE 75 MG TABLET PO (08:32)
[2021-09-04] MEDS: FINASTERIDE 5 MG TABLET PO (08:32)
[2021-09-04] MEDS: TAMSULOSIN HCL 0.4 MG CAPSULE PO (08:32)
[2021-09-04] MEDS: FUROSEMIDE INJ 40 MG/4 ML VIAL IV PUSH (08:32)
[2021-09-04] MEDS: FERROUS SULFATE 324 MG TABLET PO (08:32)
[2021-09-04] MEDS: hydrALAZINE 10 MG TABLET PO (08:32)
[2021-09-04] MEDS: VENLAFAXINE HCL XR 75 MG CAP.ER.24H PO (08:32)
--- NOTE | 2021-09-04 11:21 | PM.DS ---
DS: Admitting Diagnosis Discharge Date 09/04/2021 Admitting Diagnosis Chest pain DS: Discharge Diagnosis Discharge Diagnosis (1) ST elevation (STEMI) myocardial infarction: Code(s): I21.3 - ST elevation (STEMI) myocardial infarction of unspecified site Status: Acute Assessment and Plan: medical management per Cardiology, continue heparin drip and Lasix 09/03/2021 interval history: patient with history of severe coronary artery disease now with a elevated tropes and chest pain, patient seen by Cardiology unable to provide any intervention as patient coronary arteries and now unamenable to any intervention, recommending medical management, woven label designer recommend heparin drip for 1 day, will continue to monitor, will have a PT OT evaluate the patient patient will benefit going to acute rehab, patient states he is feeling much currently denies any chest pain or shortness of breath is granddaughter is present in the room, (2) Diabetes: Code(s): E11.9 - Type 2 diabetes mellitus without complications Status: Acute Assessment and Plan: Accu-Cheks q.a.c. and q.h.s., continue home medications (3) CHF (congestive heart failure): Qualifiers: Heart failure chronicity: acute on chronic Heart failure type: unspecified Qualified Code(s): I50.9 - Heart failure, unspecified Code(s): I50.9 - Heart failure, unspecified Status: Acute Assessment and Plan: defer management to Cardiology, do need to get copies of old records or may need to order an echo, will hold off on ordering this for now, obtain old records DS: Summary Hospital Course Hospital Course: 74 years old male was admitted the chest pain. Patient ST-elevation [place],cardiology was consulted medications were prescribed. Intervention was advised. Patient did not have any complicating stay in the hospital. Today patient is feeling better so patient discharged in stable condition. Status at Discharge Cognitive/behavioral status at discharge: Stable Time Spent with Patient Time attestation: Total time spent providing and/or coordinating discharge services: Time spent: Less than 30 minutes Exam Narrative: Patient is comfortable, NAD HEENT: eyes are clear and none icteric LUNGS: bilateral fair air entry with rales and rhonchi HEART: RR S1S2 ABD: BS+, Soft and nontender Lower extremities: no edema SKIN: nonjaundiced Neuro: grossly intact. DS: Data Data Completed and Pending Labs on day of discharge: Labs from last 24 hours 09/04/21 09/04/21 09/03/21 07:31 04:49 20:46 Sodium 134 L Potassium 3.5 Chloride 101 Carbon Dioxide 30 Anion Gap 3 L BUN 28 H Creatinine 1.10 Estim Creat Clear Calc 51 Estimated GFR > 60 Glucose 180 H POC Capillary Glucose 175 H 274 H Calcium 9.3 Magnesium 1.8 Total Bilirubin 1.1 AST 23 ALT 19 Alkaline Phosphatase 87 Total Protein 6.0 L Albumin 3.2 L 09/03/21 09/03/21 16:23 12:13 Sodium Potassium Chloride Carbon Dioxide Anion Gap BUN Creatinine Estim Creat Clear Calc Estimated GFR Glucose POC Capillary Glucose 378 H 284 H Calcium Magnesium Total Bilirubin AST ALT Alkaline Phosphatase Total Protein Albumin Discharge Plan Discharge Attending physician on discharge: Lopez Rosas Consulting providers: Tyler Aleman Discharging Clinician: Lopez Rosas Patient Disposition: Home, Self-Care Activity: as tolerated Diet: regular and heart healthy Patient Instructions: Antibiotic Form, Clopidogrel (By mouth), Heart Failure (ED), Acute Coronary Syndrome (DC) Stand Alone Forms: General Discharge Information Follow-up/Referrals: Tyler Aleman MD [Physician] - [facility] [Primary Care Provider] - Discharge Medications: Continued atorvastatin 40 mg Tablet 80 mg PO HS furosemide [Lasix] 20 mg Ta
--- NOTE | 2021-09-04 12:01 | PCOTNOTE ---
Attempted to work with pt. this am however, pt. to d/c and stated I know this is your job, but I am just too tired honey. I'm leaving here at 1.
[2021-09-04 12:13] LABS: Glucose Point of Care 330 mg/dl (65-105)
[2021-09-04] MEDS: INSULIN ASPART (*BKC) 100 UNITS/ML SUB-Q (13:04)
== END 2021-09-04 14:10 | disposition home or self-care (01) | DRG 280 ==
LOC: ANHED 20:13 → ANHIMU 22:12
PROVIDERS: Family Medicine; Specialist; Admitting Provider Student in an Organized Health Care Education/Training Program; Emergency Provider Emergency Medicine; Visit Provider Internal Medicine
DX: I11.0 Hypertensive heart disease with heart failure (principal); I50.23 Acute on chronic systolic (congestive) heart failure; I21.3 ST elevation (STEMI) myocardial infarction of unspecified site; E78.5 Hyperlipidemia, unspecified; E11.51 Type 2 diabetes mellitus with diabetic peripheral angiopathy without gangrene; I25.5 Ischemic cardiomyopathy; I25.10 Atherosclerotic heart disease of native coronary artery without angina pectoris; Z87.891 Personal history of nicotine dependence; Z95.1 Presence of aortocoronary bypass graft; Z79.02 Long term (current) use of antithrombotics/antiplatelets; Z79.4 Long term (current) use of insulin; Z79.84 Long term (current) use of oral hypoglycemic drugs; Z79.82 Long term (current) use of aspirin
CPT/HCPCS: 36415; 71045; 80053; 80061; 82948; 83735; 84484; 85025; 85610; 85730; 86850; 86880; 86900; 86901; 86902; 93005; 97110; 97116; 97161; 97166; 99285; A9270; C8929; J1644; J1815; J1940; J7030; Q9957

== ENCOUNTER 2021-09-13 10:02 | Inpatient (IN) | payer MEDICARE, OTHER, SELFPAY ==
[2021-09-13] VITALS (42 sets, daily range): BP systolic 90–145; BP diastolic 41–88; PULSE 58–82; RESP 13–28; TEMP 35.8–36.8; O2SAT 88–100; BMI 27.7
--- NOTE | ~2021-09-13 | XR_ITS ---
XR chest 2V 09/15/2021 10:01 Indication: Shortness of breath. History of CHF. Procedure: AP and lateral views of the chest Comparison: Comparison to multiple prior studies sequentially, with oldest reviewed study dated 04/2019. Findings: Status post median sternotomy for CABG. There are calcified bilateral granulomas. There is widespread bilateral airspace disease. Small pleural effusions. No pneumothorax. Impression: 1: Widespread bilateral airspace disease, most likely edema. Pneumonia less favored. 2: Small pleural effusions. Reviewed, dictated and finalized at location B. Impression: 1: Widespread bilateral airspace disease, most likely edema. Pneumonia less fav ored. 2: Small pleural effusions.
--- NOTE | ~2021-09-13 | XR_ITS ---
EXAMINATION: XR chest 2V DATE: 09/13/2021 10:40 INDICATION: Worsening shortness of breath. TECHNIQUE: Frontal and lateral views of the chest were obtained. COMPARISON: Chest single view 09/02/2021 FINDINGS: There are small pleural effusions. There is a diffuse interstitial pattern, consistent mild pulmonary edema. Calcified left lung nodules are consistent with old granulomatous disease. No pneum othorax. Cardiomegaly is noted. Median sternotomy wires and mediastinal surgical clips are seen, like ly from prior coronary artery bypass grafting. There is an old fracture of right clavicle with nonuni on. IMPRESSION: 1. Mild pulmonary edema. 2. Small pleural effusions. 3. Cardiomegaly. Reviewed, dictated and finalized at location A.
--- NOTE | 2021-09-13 10:10 | ECG_ITS ---
Measurements Intervals Arnold Rate: 85 P: 45 SD: 141 QRS: 0 QRSD: 144 T: 173 QT: 400 QTc: 477 Interpretive Statements SINUS RHYTHM OLD INFERIOR MA PROBABLE LVH WITH SECONDARY REPOL ABNRM ABNORMAL RHYTHM ECG COMPARED TO ECG 09/02/2021 17:52:25 NO SIGNIFICANT CHANGES Electronically Signed On 09-13-2021 15:32:11 CDT by Eb Arenas MD
[2021-09-13 10:27] LABS: Basophils Absolute Auto 0.1 K/mm3 (0.0-0.1); Basophils Percent Auto 0.7 % (0.2-1.2); Eosinophils Absolute Auto 0.3 K/mm3 (0-0.3); Eosinophils Percent Auto 3.4 % (0-4.4); Hematocrit 38.8 % (42.0-52.0); Hemoglobin 12.4 g/dL (14.0-18.0); Immature Granulocyte Absolute 0.02 K/mm3 (0.00-0.031); Immature Granulocyte Percent A 0.3 % (0-0.5); Lymphocytes Absolute Auto 2.17 K/mm3 (0.9-3.2); Lymphocytes Percent Auto 28.5 % (18.3-44.2); Mean Corpuscular Hemoglobin 29.7 pg (26-34); Mean Platelet Volume 10.6 fl (7.4-10.4); Monocytes Absolute Auto 0.4 K/mm3 (0.1-0.6); Monocytes Percent Auto 5.8 % (2.6-8.5); Neutrophils Absolute Auto 4.7 K/mm3 (1.3-6.7); Neutrophils Percent Auto 61.3 % (45.5-73.1); Platelet Count Result 282 k/mm3 (150-375); Red Blood Count 4.17 M/mm3 (4.6-6.20); Red Cell Distribution Width 15.1 % (11.5-14.5); White Blood Count 7.6 K/mm3 (4.5-10.0)
[2021-09-13 10:34] LABS: Alanine Aminotransferase 24 U/L (6-50); Albumin Level 3.8 g/dL (3.5-5.1); Alkaline Phosphatase 114 U/L (38-126); Anion Gap 8 mmol/L (8-16); Aspartate Amino Transferase 24 U/L (17-59); Bilirubin,Total 0.9 mg/dL (0.2-1.3); Blood Urea Nitrogen 28 mg/dL (9-20); Calcium 9.9 mg/dL (8.4-10.2); Carbon Dioxide 26 mmol/L (22-30); Chloride 106 mmol/L (98-107); Estimated CRCL calculation 54 ml/min; Estimated Glomerular Filt Rate > 60; Glucose 121 mg/dL (65-110); Sodium 140 mmol/L (137-145)
--- NOTE | 2021-09-13 10:50 | ED.SOB ---
HPI - SOB/Dyspnea General Chief Complaint: Shortness of Breath/Dyspnea Stated Complaint: SOB Time Seen by Provider: 09/13/21 10:20 History of Present Illness HPI Narrative: 80-year-old male presents to the ER today for generalized weakness and increasing shortness of breath. He has a history of congestive heart failure. Over the past week he has become much more weak and lethargic. He is not able to tolerate activity due to shortness of breath. He has been having episodes of confusion. His family checked his oxygen saturations and they have been running in the 80s. He does not wear oxygen at home. Patient denies having any chest pain or abdominal pain. He does report report having problems with constipation. No nausea vomiting or diarrhea. No fever or chills. No cough or congestion. He does get swelling in his legs but this is better right now. Patient was admitted to our facility on 09/02/2021 for STEMI. He did not have intervention at that time. Other pertinent past medical history is coronary artery disease, congestive heart failure, diabetes, and hypothyroid. Related Data Home Medications Medication Instructions Recorded Confirmed atorvastatin 40 mg tablet 80 mg PO HS 03/11/20 09/13/21 carvedilol 12.5 mg tablet 12.5 mg PO Q12H 03/11/20 09/13/21 clopidogrel 75 mg tablet (Plavix) 75 mg PO QAM 03/11/20 09/13/21 ferrous sulfate 325 mg (65 mg 325 mg PO QAM 03/11/20 09/13/21 iron) tablet furosemide 20 mg tablet (Lasix) 20 mg PO QNOON PRN Edema 03/11/20 09/13/21 furosemide 20 mg tablet (Lasix) 60 mg PO QAM 03/11/20 09/13/21 insulin glargine 100 unit/mL 18 unit subcut QPM 03/11/20 09/13/21 subcutaneous solution (Lantus U-100 Insulin) levothyroxine 100 mcg tablet 100 mcg PO QAM 03/11/20 09/13/21 metformin 500 mg tablet,extended 1,000 mg PO BID 03/11/20 09/13/21 release 24 hr venlafaxine 75 mg capsule,extended 75 mg PO DAILY 03/11/20 09/13/21 release 24 hr (Effexor XR) aspirin 81 mg capsule 81 mg PO DAILY 09/02/21 09/13/21 finasteride 5 mg tablet 5 mg PO DAILY 09/02/21 09/13/21 hydralazine 10 mg tablet 10 mg PO BID 09/02/21 09/13/21 tamsulosin 0.4 mg capsule (Flomax) 0.4 mg PO DAILY 09/02/21 09/13/21 Allergies Allergy/AdvReac Type Severity Reaction Status Date / Time strawberry Allergy Mild Hives Verified 09/13/21 15:40 morphine Allergy Unknown Stopped Verified 09/13/21 15:40 Breathing Review of Systems Review of Systems: CONSTITUTIONAL: Denies fever, chills, or sweats. EYES: Denies visual changes, redness, or discharge. ENT: Denies rhinorrhea, congestion, sore throat, or otalgia. CARDIOVASCULAR: Denies chest pain, palpitations, or edema. RESPIRATORY: Increased shortness of breath, worse with exertion. GASTROINTESTINAL: Denies abdominal pain, nausea, vomiting, or diarrhea. Reports constipation. GENITOURINARY: Denies dysuria or hematuria. SKIN: Denies rash or itching. MUSCULOSKELETAL: Denies back pain, joint pain, or myalgia. NEUROLOGIC: Per family increased weakness, fatigue. PSYCHIATRIC: Denies anxiety or depression. [facility] Past Medical History Medical History Acute respiratory failure with hypoxia BPH (benign prostatic hyperplasia) Coronary artery disease Diabetes Hypertension Hypothyroid ST elevation (STEMI) myocardial infarction Surgical History Surgical History Hx of CABG Stented coronary artery Family History Family History Father Heart disease Social History Social History Smoking packs per day: 1 Smoking cigarettes per day: 20.0 Years smoked: 30 Smoking pack-years: 30.00 Smoking status: Former smoker Alcohol intake: former Substance use: never Gender identity (if verbalized by the patient): Male Spiritual care concerns: No Exam
[2021-09-13] MEDS: FUROSEMIDE INJ 40 MG/4 ML VIAL IV PUSH ×2 (11:05→18:43)
[2021-09-13 11:07] LABS: Magnesium 1.8 mg/dL (1.6-2.3)
[2021-09-13 11:32] LABS: NT Pro B Type Natriuretic Pept 9800 pg/mL (5-100); Troponin I 0.099 ng/mL (0.000-0.034)
[2021-09-13 12:11] LABS: INR 1.2; Prothrombin Time 14.3 Seconds (11.1-14.7)
[2021-09-13 12:12] LABS: Partial Thromboplastin Time 29.5 SECONDS (22.3-36.8)
[2021-09-13 14:22] LABS: Troponin I 0.099 ng/mL (0.000-0.034)
--- NOTE | 2021-09-13 14:46 | PM.CNCAR ---
Assessment and Plan Assessment and plan (1) CHF (congestive heart failure): Qualifiers: Heart failure chronicity: acute on chronic Heart failure type: unspecified Qualified Code(s): I50.9 - Heart failure, unspecified Code(s): I50.9 - Heart failure, unspecified Status: Acute (2) Coronary artery disease: Code(s): I25.10 - Atherosclerotic heart disease of [place] coronary artery without angina pectoris Status: Acute (3) Hx of CABG: Code(s): Z95.1 - Presence of aortocoronary bypass graft Status: Acute (4) Stented coronary artery: Code(s): Z95.5 - Presence of coronary angioplasty implant and graft Status: Acute Additional Plan -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 His brain atretic peptide is elevated. Chest x-ray shows mild congestion. Apparently family informed by his invoice checker at the [facility] that there is nothing much can be done. His last echocardiogram a month ago shows ejection fraction 15-20% with akinetic inferior wall. -will start Lasix 40 mg IV b.i.d. with monitoring volume status. -assess for rehab. -will obtain records from [facility] and the [facility] to see what else can be done to optimize patient's symptoms and treatment. -will reduce Coreg from 12.5 mg b.i.d. to 6.25 mg b.i.d. to allow room in blood pressure for diuretics. Hold hydralazine for now until we evaluate and re-evaluate the blood pressure. - History of Present Illness History of Present Illness Consult date/time: Date of service 09/13/21 14:46 Requesting physician: Ruth Ann David APRN Consult reason: congestive heart failure Reason For Visit: CHF exacerbation/hypoxia Narrative: This 80-year-old patient with past medical history of ischemic cardiomyopathy. History of CABG 1992 with subsequent stents, has multivessel disease and was told by his invoice checker at [facility] that there was no further intervention can be done according to the report from a consultation that was done during last visit. History of carotid artery stenosis, hypertension, diabetes, hypothyroidism, depression and benign prostatic hypertrophy. He was discharged from the hospital recently and then when the daughter came to visit him she found him to be lethargic, tired not himself, oxygen saturation in the 80s, shortness of breath on minimal exertion, not eating and drinking well. He fell down a couple times as well. Chest pain, lower extremity edema. His daughter states that last visit she thought he will be sent to rehabilitation. Chest x-ray reviewed analyze myself shows mild pulmonary edema. Troponins 0.099, 0.099, brain atretic peptide 9800, creatinine 1.1, BUN 28 EKG reviewed and analyzed myself shows shows sinus rhythm inferior Q-waves with ST elevation unchanged from before, T inversion and ST depression in leads 1 and aVL. Echocardiogram done August 2021 shows ejection fraction 15-20%, a kinetic inferior wall, biatrial enlargement, mitral valve ring?? Review of Systems Constitutional: Constitutional: Denies chills, Reports fatigue, Denies fever(s), Reports lethargy, Reports poor appetite and Reports weakness Eyes: Eyes: Denies eye discharge, Denies loss of vision, Denies eye pain and Denies photophobia ENT: Denies dizziness, Denies epistaxis, Denies nasal congestion and Denies sore throat Cardiovascular: Cardiovascular: Denies chest pain, Denies syncope, Denies pedal edema, Denies leg edema, Denies palpitations, Reports dyspnea and Reports dyspnea on exertion Respiratory: Respiratory: Denies cough, Reports dyspnea, Reports dyspnea on exer
--- NOTE | 2021-09-13 15:00 | PC.NURSE ---
This patient, Marcio Rubi Jr., was admitted to IMU Room 232-01. Patient/family oriented to hospital policies and general routines including ID bracelet, bed and alarms, visiting hours, pain management, procedures, bathroom and other care routines, personal items, smoking policy, room service/diet, and visiting hours. Information on how to activate the Rapid Response Team has been discussed. Patient/Family are encouraged to report perceived risks to care and to ask questions if they do not understand what they are told or what they should do.
--- NOTE | 2021-09-13 15:29 | PM.IMHP ---
H&P: HPI History of Present Illness Date/Time: Patient was placed observation status for expected length of stay less than 23 hours for management, will plan to re-evaluate tomorrow for improvement. 09/13/21 15:29 Chief Complaint: Weakness Narrative: Mr. Rubi is a 72-year-old gentleman who presented emergency room with complaints of shortness of breath and increasing weakness. Patient states that he was hospitalized at the end of September for myocardial infarction and was feeling mildly improved after discharge, but since that point time has had significant increase in shortness of breath and weakness. Patient states he has been taking all medications without any difficulty. Patient states he does not weigh himself daily. Patient denies any chest discomfort, lightheadedness, dizziness, syncopal, or near syncopal episodes. Patient states he had been following with a boxing promoter at the [place], but has not followed up with them since discharge from hospital. Patient states over the last 2 days he is not able to walk from his stove to his countertop without becoming extremely short of breath. Patient denies any abdominal pain, nausea, vomiting, constipation, or diarrhea. Patient denies any fever, chills, dysuria, hematuria, frequency, or urgency. Patient denies wearing oxygen at home. Patient's family is at bedside states that they have been checking his oxygen saturations and they have been in the 80s at home. Patient has a significant history of coronary artery disease status post coronary artery bypass grafting status post stent placement. Per previous records last admission it had been discussed with patient that secondary to his significant coronary artery disease he was told by [facility] there is no further intervention that could be performed on his coronary arteries. Last admission patient was admitted with elevated troponins and he underwent echo Doppler that showed left ventricular systolic function severely reduced, estimated at 15-20%. The inferior wall is frankly akinetic, the remainder is severely hypo dynamic. Bilateral atrial dilation. Patient also has a known history of diabetes mellitus, hypothyroidism, hypertension, BPH, and depression. Review of Systems Review of Systems: A 12 point review of systems was completed patient all pertinent positive and negative per HPI the remainder are unremarkable. [facility] Past Medical History Medical History (Updated 09/13/21 @ 15:37 by Radha Walters APRN) Acute respiratory failure with hypoxia BPH (benign prostatic hyperplasia) Coronary artery disease Diabetes Hypertension Hypothyroid ST elevation (STEMI) myocardial infarction Surgical History Surgical History (Updated 09/13/21 @ 15:12 by Eb Arenas MD) Hx of CABG Stented coronary artery Family History Family History Father Heart disease Social History Social History Smoking packs per day: 1 Smoking cigarettes per day: 20.0 Years smoked: 30 Smoking pack-years: 30.00 Smoking status: Former smoker Alcohol intake: former Substance use: never Gender identity (if verbalized by the patient): Male Spiritual care concerns: No Meds Home Medications and Allergies Home Medications Medication Instructions Recorded Confirmed Type atorvastatin 40 mg tablet 80 mg PO HS 03/11/20 09/02/21 History carvedilol 12.5 mg tablet 12.5 mg PO Q12H 03/11/20 09/02/21 History clopidogrel 75 mg tablet (Plavix) 75 mg PO QAM 03/11/20 09/02/21 History ferrous sulfate 325 mg (65 mg 325 mg PO QAM 03/11/20 09/02/21 History iron) tablet furosemide 20 mg tablet (Lasix) 20 mg PO QNOON PRN Edema 03/11/20 09/02/21 History furosemide 20 mg tablet (Lasix) 60 mg PO QAM 03/11/20 09/02/21 History insulin glargine 100 unit/mL 18 unit subcut QPM 03/11/20 09/02/21 History subcutaneous solution (Lantus U-100 I
--- NOTE | 2021-09-13 16:08 | PCPTNOTE ---
Attempted physical therapy evaluation, patient refused stating I'm too tired. RN aware. Will follow.
[2021-09-13 17:06] LABS: Troponin I 0.091 ng/mL (0.000-0.034)
[2021-09-13] MEDS: INSULIN GLARGINE (*BKC) 100 UNITS/ML 18 UNITS SUB-Q (18:43)
[2021-09-13 19:27] LABS: Glucose Point of Care 168 mg/dl (65-105)
[2021-09-13 19:54] LABS: Glucose Point of Care 217 mg/dl (65-105)
[2021-09-13] MEDS: ATORVASTATIN 40 MG TABLET 80 MG PO (20:42)
[2021-09-13] MEDS: carvediloL 3.125 MG TABLET PO (20:42)
[2021-09-14] VITALS (19 sets, daily range): BP systolic 104–138; BP diastolic 47–75; PULSE 66–92; RESP 18–22; TEMP 36.1–36.8; O2SAT 93–98
[2021-09-14] MEDS: LEVOTHYROXINE SODIUM 100 MCG TABLET PO (05:53)
[2021-09-14 07:36] LABS: Glucose Point of Care 109 mg/dl (65-105)
[2021-09-14 07:44] LABS: Basophils Percent Auto 0.6 % (0.2-1.2); Eosinophils Absolute Auto 0.3 K/mm3 (0-0.3); Eosinophils Percent Auto 4.6 % (0-4.4); Hemoglobin 11.2 g/dL (14.0-18.0); Immature Granulocyte Absolute 0.02 K/mm3 (0.00-0.031); Immature Granulocyte Percent A 0.3 % (0-0.5); Lymphocytes Absolute Auto 1.67 K/mm3 (0.9-3.2); Lymphocytes Percent Auto 24.7 % (18.3-44.2); Mean Corpuscular Hemoglobin 29.8 pg (26-34); Mean Corpuscular Volume 93.1 fl (80-100); Mean Platelet Volume 10.4 fl (7.4-10.4); Monocytes Absolute Auto 0.4 K/mm3 (0.1-0.6); Monocytes Percent Auto 5.9 % (2.6-8.5); Neutrophils Absolute Auto 4.3 K/mm3 (1.3-6.7); Neutrophils Percent Auto 63.9 % (45.5-73.1); Platelet Count Result 237 k/mm3 (150-375); Red Blood Count 3.76 M/mm3 (4.6-6.20); White Blood Count 6.8 K/mm3 (4.5-10.0)
[2021-09-14 07:49] LABS: Anion Gap 2 mmol/L (8-16); Blood Urea Nitrogen 24 mg/dL (9-20); Calcium 9.3 mg/dL (8.4-10.2); Carbon Dioxide 34 mmol/L (22-30); Chloride 102 mmol/L (98-107); Estimated CRCL calculation 47 ml/min; Estimated Glomerular Filt Rate 59; Glucose 109 mg/dL (65-110); Magnesium 1.7 mg/dL (1.6-2.3); Potassium 3.8 mmol/L (3.4-5.0); Sodium 138 mmol/L (137-145)
[2021-09-14] MEDS: TAMSULOSIN HCL 0.4 MG CAPSULE PO (10:01)
[2021-09-14] MEDS: carvediloL 3.125 MG TABLET PO ×2 (10:01→20:53)
[2021-09-14] MEDS: FINASTERIDE 5 MG TABLET PO (10:01)
[2021-09-14] MEDS: CLOPIDOGREL BISULFATE 75 MG TABLET PO (10:01)
[2021-09-14] MEDS: VENLAFAXINE HCL XR 75 MG CAP.ER.24H PO (10:01)
[2021-09-14] MEDS: FERROUS SULFATE 324 MG TABLET PO (10:02)
[2021-09-14] MEDS: ASPIRIN 81 MG ENTERIC TABLET PO (10:02)
[2021-09-14] MEDS: ENOXAPARIN 40 MG/0.4 ML SYRINGE SUB-Q (10:02)
[2021-09-14] MEDS: FUROSEMIDE INJ 40 MG/4 ML VIAL IV PUSH ×2 (10:04→16:28)
--- NOTE | 2021-09-14 11:15 | PM.IMPN ---
Progress Note: A&P Assessment and Plan (1) CHF (congestive heart failure): Qualifiers: Heart failure chronicity: acute on chronic Heart failure type: unspecified Qualified Code(s): I50.9 - Heart failure, unspecified Code(s): I50.9 - Heart failure, unspecified Status: Acute (2) Diabetes: Code(s): E11.9 - Type 2 diabetes mellitus without complications Status: Acute (3) Coronary artery disease: Code(s): I25.10 - Atherosclerotic heart disease of [place] coronary artery without angina pectoris Status: Acute (4) Hypertension: Code(s): I10 - Essential (primary) hypertension Status: Acute Plan # Acute on chronic systolic and diastolic CHF. EF 15-20% with diastolic dysfunction. Cardiology's was consulted and appreciate further recommendations. Patient on Lasix 40mg IV b.i.d. Other medications being adjusted. Still on 4L O2. negative fluid balance. Request old records. Follow. Replace Mag # DM - The patient's blood glucose was reviewed on 09/14. Glucose remains well controlled. Continue AccuCheks covering with sliding scale. Hypoglycemia protocol available as needed. Continue current medications. # CAD - Stable. Continue medical management. # HTN -Patient's blood pressure was reviewed on 09/14. Blood pressure remains well controlled. Will continue current medications. DVT prophylaxis: Lovenox Code status: Full. Discussed DNR status and briefly mentioned Hospice. Gdtr in the room with patient permission. All questions answered. Subjective Date/time seen: 09/14/21 11:15 Interval history: 80yo male with CHF and CAD here for SOB and weakness. Assuming care. Chart reviewed. Feels better. No CP. Does not have O2 at home but family/patient feel he needs it. Exam Narrative: AF 97.0 136/57 73 20 97% 4L Gen - NARD Chest - CTA bilaterally, nml RR CV - RRR S1/S2 Abd - Soft, NT/ND, Positive BS Ext - No pedal edema Neuro - Alert and oriented. Nonfocal exam. Psych - Nml mood and affect Skin - Warm and dry Objective Data Vital Signs Vital Signs: Vital Signs - 24 hr 09/13/21 11:25 09/13/21 11:31 09/13/21 11:39 Temperature Pulse Rate 66 64 69 Respiratory Rate 25 H 25 H 23 H Blood Pressure 118/63 Pulse Oximetry 96 96 93 Oxygen Delivery Oxygen Flow Rate 09/13/21 11:45 09/13/21 12:00 09/13/21 12:01 Temperature Pulse Rate 74 60 68 Respiratory Rate 22 H 15 23 H Blood Pressure 113/61 Pulse Oximetry 95 98 97 Oxygen Delivery Oxygen Flow Rate 09/13/21 12:19 09/13/21 12:30 09/13/21 12:31 Temperature Pulse Rate 64 60 64 Respiratory Rate 28 H 22 H 25 H Blood Pressure 90/49 L Pulse Oximetry 97 94 93 Oxygen Delivery Oxygen Flow Rate 09/13/21 12:42 09/13/21 12:43 09/13/21 12:44 Temperature Pulse Rate 61 60 61 Respiratory Rate 18 22 H 22 H Blood Pressure 104/73 105/50 L 106/41 L Pulse Oximetry 98 94 93 Oxygen Delivery Oxygen Flow Rate 09/13/21 12:45 09/13/21 12:46 09/13/21 12:47 Temperature Pulse Rate 58 L 68 63 Respiratory Rate 23 H 27 H 21 H Blood Pressure 105/41 L 103/47 L Pulse Oximetry 94 94 95 Oxygen Delivery Oxygen Flow Rate 09/13/21 13:02 09/13/21 13:34 09/13/21 13:50 Temperature Pulse Rate 71 69 68 Respiratory Rate 23 H 20 25 H Blood Pressure Pulse Oximetry 95 97 99 Oxygen Delivery Oxygen Flow Rate 09/13/21 14:02 09/13/21 14:03 09/13/21 14:15 Temperature Pulse Rate 70 68 73 Respiratory Rate 13 21 H 23 H Blood Pressure 126/76 Pulse Oximetry 98 97 97 Oxygen Delivery Oxygen Flow Rate 09/13/21 14:32 09/13/21 14:45 09/13/21 15:00 Temperature 96.5 F L Pulse Rate 75 82 65 Respiratory Rate 20 27 H 24 H Blood Pressure 144/64 H 134/66 Pulse Oximetry 97 100 Oxygen Delivery Oxygen Flow Rate 09/13/21 16:00 09/13/21 16:00 09/13/21 18:00 Temperature 96.8 F L Pulse Rate 72 67 70 Respiratory Rate 22 H
[2021-09-14 11:41] LABS: Glucose Point of Care 239 mg/dl (65-105)
--- NOTE | 2021-09-14 14:01 | PC.NURSE ---
[facility] flyer was given to patient.
[2021-09-14] MEDS: MAGNESIUM SULF 2 GM/WATER 50ML 2 GM/50 ML BAG IVPB (14:44)
--- NOTE | 2021-09-14 16:02 | PM.PNCARD ---
Progress Note: A&P Assessment and Plan (1) Acute exacerbation of CHF (congestive heart failure): Code(s): I50.9 - Heart failure, unspecified Status: Acute Plan Patient with severe ischemic cardiomyopathy low ejection fraction known history of bypass surgery and PCI patient is followed elsewhere. He has been hospitalized here twice now within the last couple of weeks decompensated CHF. He is responding adequately to IV diuretic. I am going to start him on Entresto at this time in an attempt to prevent these frequent hospitalizations. It was my plan and during the last admission to defer these decisions to his established die out worker but it seems obvious that he is going to be returning to this emergency room with frequency if nothing is done more effective to treat his congestive heart failure. We will watch his blood pressure carefully and start Entresto 24/26 mg this evening Tyler Aleman MD [facility] Subjective Date/time seen: Date of service: 09/14/21 16:02 Interval history: Follow-up visit in this gentleman with decompensated left-sided congestive heart failure with profound ischemic cardiomyopathy. Patient says he feels somewhat better since admission following IV diuresis. Was resting comfortably sleeping in bed when I came in the room to see him but wearing nasal cannula oxygen Exam Const: General: comfortable and no acute distress Other: Frail elderly man no distress HENMT: Mouth: Yes moist mucous membranes Eyes: Sclera: sclerae normal Pupils: Equal, round and reactive pupils present Neck: Neck: supple and no JVD Resp: Auscultation: crackles Other: Bibasilar crackles noted Cardio: Rate: regular rate Rhythm: regular rhythm GI: GI Palp: Yes Soft to palpation Auscultation: normal bowel sounds Skin: General skin exam: normal color Neuro: Other: Normal cognition Extrem: Other: No significant pitting edema at this time Objective Data Vital Signs Vital Signs: Vital Signs - 24 hr 09/13/21 18:00 09/13/21 20:00 09/13/21 20:42 Temperature 36.8 C Pulse Rate 70 78 70 Respiratory Rate 20 Blood Pressure 140/65 Pulse Oximetry 100 Oxygen Delivery Oxygen Flow Rate 09/13/21 20:00 09/13/21 20:00 09/13/21 21:52 Temperature Pulse Rate 71 Respiratory Rate Blood Pressure Pulse Oximetry 100 99 Oxygen Delivery Nasal Cannula Nasal Cannula Oxygen Flow Rate 5 4 09/13/21 22:00 09/13/21 23:07 09/14/21 00:00 Temperature 36.4 C Pulse Rate 69 74 68 Respiratory Rate 20 Blood Pressure 127/64 Pulse Oximetry 96 Oxygen Delivery Oxygen Flow Rate 09/14/21 00:00 09/14/21 02:00 09/14/21 04:00 Temperature 36.3 C L Pulse Rate 70 78 Respiratory Rate 20 Blood Pressure 138/75 Pulse Oximetry 96 98 Oxygen Delivery Nasal Cannula Oxygen Flow Rate 4 09/14/21 04:00 09/14/21 04:00 09/14/21 06:00 Temperature Pulse Rate 66 79 Respiratory Rate Blood Pressure Pulse Oximetry 98 Oxygen Delivery Nasal Cannula Oxygen Flow Rate 4 09/14/21 07:48 09/14/21 09:24 09/14/21 10:01 Temperature 36.1 C L Pulse Rate 74 73 Respiratory Rate 20 Blood Pressure 136/57 L Pulse Oximetry 97 Oxygen Delivery Nasal Cannula Oxygen Flow Rate 4 09/14/21 10:04 09/14/21 11:47 09/14/21 12:18 Temperature 36.4 C L Pulse Rate 75 Respiratory Rate 22 H Blood Pressure 104/47 L Pulse Oximetry 97 97 Oxygen Delivery Nasal Cannula Nasal Cannula Oxygen Flow Rate 4 4 Intake/Output Intake/Output: Intake & Output 09/11/21 09/12/21 09/13/21 09/14/21 23:59 23:59 23:59 23:59 Intake Total 150 480 Output Total 1900 Balance 150 -1420 Meds/Results Medications: Active Medications Generic Name Dose Route Start Last Admin Trade Name Freq PRN Reason Stop Dose Admin Aspirin 81 mg 09/14/21 09:00 09/14/21 10:07 Aspirin 81 Mg Chewable Tablet PO Not Given DAILY NAKIA Atorvastatin Calcium 80
[2021-09-14 16:40] LABS: Glucose Point of Care 318 mg/dl (65-105)
[2021-09-14] MEDS: INSULIN GLARGINE (*BKC) 100 UNITS/ML 18 UNITS SUB-Q (18:22)
[2021-09-14 20:38] LABS: Glucose Point of Care 324 mg/dl (65-105)
[2021-09-14] MEDS: ATORVASTATIN 40 MG TABLET 80 MG PO (20:53)
[2021-09-14] MEDS: SACUBITRIL/VALSARTAN 24-26 MG TABLET 1 TAB PO (20:53)
[2021-09-14] MEDS: INSULIN ASPART (*BKC) 100 UNITS/ML SUB-Q (22:28)
[2021-09-15] VITALS (18 sets, daily range): BP systolic 100–146; BP diastolic 51–82; PULSE 62–89; RESP 16–20; TEMP 35.9–36.9; O2SAT 93–100
[2021-09-15 05:06] LABS: Basophils Absolute Auto 0.1 K/mm3 (0.0-0.1); Basophils Percent Auto 0.7 % (0.2-1.2); Eosinophils Absolute Auto 0.3 K/mm3 (0-0.3); Eosinophils Percent Auto 4.9 % (0-4.4); Hematocrit 35.4 % (42.0-52.0); Hemoglobin 11.3 g/dL (14.0-18.0); Immature Granulocyte Absolute 0.02 K/mm3 (0.00-0.031); Immature Granulocyte Percent A 0.3 % (0-0.5); Lymphocytes Absolute Auto 1.54 K/mm3 (0.9-3.2); Mean Corpuscular HGB Conc 31.9 g/dl (32-36); Mean Corpuscular Hemoglobin 29.7 pg (26-34); Mean Corpuscular Volume 93.2 fl (80-100); Mean Platelet Volume 10.6 fl (7.4-10.4); Monocytes Absolute Auto 0.5 K/mm3 (0.1-0.6); Monocytes Percent Auto 7.3 % (2.6-8.5); Neutrophils Absolute Auto 4.3 K/mm3 (1.3-6.7); Neutrophils Percent Auto 63.8 % (45.5-73.1); Platelet Count Result 230 k/mm3 (150-375); Red Cell Distribution Width 14.7 % (11.5-14.5); White Blood Count 6.7 K/mm3 (4.5-10.0)
[2021-09-15 05:20] LABS: Albumin Level 3.4 g/dL (3.5-5.1); Anion Gap 4 mmol/L (8-16); Blood Urea Nitrogen 22 mg/dL (9-20); Calcium 9.1 mg/dL (8.4-10.2); Carbon Dioxide 33 mmol/L (22-30); Chloride 101 mmol/L (98-107); Estimated CRCL calculation 51 ml/min; Estimated Glomerular Filt Rate > 60; Glucose 124 mg/dL (65-110); Magnesium 2.1 mg/dL (1.6-2.3); Phosphorus 3.4 mg/dL (2.5-4.5); Potassium 3.7 mmol/L (3.4-5.0); Sodium 138 mmol/L (137-145)
[2021-09-15] MEDS: LEVOTHYROXINE SODIUM 100 MCG TABLET PO (05:36)
[2021-09-15 08:32] LABS: Glucose Point of Care 143 mg/dl (65-105)
[2021-09-15] MEDS: ASPIRIN 81 MG CHEWABLE TABLET PO (08:48)
[2021-09-15] MEDS: TAMSULOSIN HCL 0.4 MG CAPSULE PO (08:48)
[2021-09-15] MEDS: carvediloL 3.125 MG TABLET PO ×2 (08:48→20:19)
[2021-09-15] MEDS: SACUBITRIL/VALSARTAN 24-26 MG TABLET 1 TAB PO ×2 (08:48→20:19)
[2021-09-15] MEDS: ENOXAPARIN 40 MG/0.4 ML SYRINGE SUB-Q (08:48)
[2021-09-15] MEDS: FUROSEMIDE INJ 40 MG/4 ML VIAL IV PUSH ×2 (08:49→16:44)
[2021-09-15] MEDS: VENLAFAXINE HCL XR 75 MG CAP.ER.24H PO (08:49)
[2021-09-15] MEDS: FINASTERIDE 5 MG TABLET PO (08:49)
[2021-09-15] MEDS: CLOPIDOGREL BISULFATE 75 MG TABLET PO (08:49)
[2021-09-15] MEDS: FERROUS SULFATE 324 MG TABLET PO (08:49)
--- NOTE | 2021-09-15 12:02 | PM.IMPN ---
Progress Note: A&P Assessment and Plan (1) CHF (congestive heart failure): Qualifiers: Heart failure chronicity: acute on chronic Heart failure type: unspecified Qualified Code(s): I50.9 - Heart failure, unspecified Code(s): I50.9 - Heart failure, unspecified Status: Acute (2) Diabetes: Code(s): E11.9 - Type 2 diabetes mellitus without complications Status: Acute (3) Coronary artery disease: Code(s): I25.10 - Atherosclerotic heart disease of [place] coronary artery without angina pectoris Status: Acute (4) Hypertension: Code(s): I10 - Essential (primary) hypertension Status: Acute Plan # Acute on chronic systolic and diastolic CHF. EF 15-20% with diastolic dysfunction. Cardiology's was consulted and appreciate their input. Patient currently on Lasix 40mg IV b.i.d. Cumulative fluid loss of 3.5L. Entresto started and tolerating this well. Renal function stable. O2 requirement dropped to 2L O2. CXR reviewed personally showing diffuse pulmonary edema. Continue IV Lasix. Wean o2 as tolerated. Continue Coreg. host coordinator to assess jean of Entresto. Continue low Na diet # DM - The patient's blood glucose was reviewed on 09/15. A1c 5.8. Glucose remains well controlled. Continue AccuCheks covering with sliding scale. Hypoglycemia protocol available as needed. Continue to follow. # CAD - Stable. Continue medical management with Coreg, ASA, Plavix and Lipitor. # HTN -Patient's blood pressure was reviewed on 09/15. Blood pressure remains well controlled. Will continue current medications. DVT prophylaxis: Lovenox Code status: Full. Patient and family wish to change to DNI Subjective Date/time seen: 09/15/21 12:02 Interval history: 80yo male with CHF and CAD here for SOB and weakness. Feeling better. SOB improved. Up walking to the chair. No CP. No n/v. Requests DNI status. He continues to insist that he will be going home with O2. Exam Narrative: AF 98.1 116/51 75 18 95% 2L Gen - NARD Chest - bibasilar crackles, nml RR CV - RRR S1/S2. Tele showing PVCs, bigeminy and brief runs of nonsustained V-tach up to 3-4 beats Abd - Soft, NT/ND, Positive BS Ext - No pedal edema Psych - Nml mood and affect Skin - Warm and dry Objective Data Vital Signs Vital Signs: Vital Signs - 24 hr 09/14/21 12:18 09/14/21 14:00 09/14/21 16:25 Temperature 98.3 F Pulse Rate 76 84 Respiratory Rate 21 H Blood Pressure 137/65 Pulse Oximetry 97 95 Oxygen Delivery Nasal Cannula Oxygen Flow Rate 4 09/14/21 16:00 09/14/21 16:00 09/14/21 18:00 Temperature Pulse Rate 75 85 Respiratory Rate Blood Pressure Pulse Oximetry 93 Oxygen Delivery Nasal Cannula Oxygen Flow Rate 3 09/14/21 18:37 09/14/21 20:00 09/14/21 20:00 Temperature 97 F L Pulse Rate 77 Respiratory Rate 18 Blood Pressure 137/62 Pulse Oximetry 97 95 97 Oxygen Delivery Nasal Cannula Nasal Cannula Oxygen Flow Rate 2 2 09/14/21 20:53 09/14/21 20:00 09/14/21 20:00 Temperature Pulse Rate 76 76 Respiratory Rate Blood Pressure Pulse Oximetry 97 Oxygen Delivery Nasal Cannula Oxygen Flow Rate 2 09/14/21 22:00 09/15/21 00:00 09/15/21 00:00 Temperature 98.4 F Pulse Rate 74 80 Respiratory Rate 16 Blood Pressure 146/82 H Pulse Oximetry 96 96 Oxygen Delivery Nasal Cannula Oxygen Flow Rate 2 09/15/21 00:00 09/15/21 02:00 09/15/21 04:00 Temperature Pulse Rate 72 70 71 Respiratory Rate Blood Pressure Pulse Oximetry Oxygen Delivery Oxygen Flow Rate 09/15/21 04:00 09/15/21 04:00 09/15/21 06:00 Temperature 97.9 F Pulse Rate 76 70 Respiratory Rate 18 Blood Pressure 100/64 Pulse Oximetry 96 96 Oxygen Delivery Nasal Cannula Oxygen Flow Rate 2 09/15/21 08:42 09/15/21 08:48 09/15/21 08:00 Temperature 98.1 F Pulse Rate 62 75 79 Respiratory Rate 18 20 Blood Pressure 116/
[2021-09-15 12:55] LABS: Glucose Point of Care 198 mg/dl (65-105)
--- NOTE | 2021-09-15 16:15 | PM.PNCARD ---
Progress Note: A&P Assessment and Plan (1) Acute exacerbation of CHF (congestive heart failure): Code(s): I50.9 - Heart failure, unspecified Status: Acute Assessment and Plan: Acute systolic and diastolic heart failure Diuresing well, edema resolved still has rales and is still on O2. Chest x-ray significantly improved but still had moderate failure. Tolerating Entresto Renal function blood pressure stable; check BMP tomorrow. Transition to p.o. diuretic in the next 1-2 days. (2) Cardiomyopathy: Code(s): I42.9 - Cardiomyopathy, unspecified Status: Acute Assessment and Plan: EF 15-20% Entresto initiated Continue carvedilol (3) Coronary artery disease: Code(s): I25.10 - Atherosclerotic heart disease of [place] coronary artery without angina pectoris Status: Acute Assessment and Plan: CAD with remote CABG, no angina Continue aspirin and atorvastatin. Also on Plavix. 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 His brain atretic peptide is elevated. Chest x-ray shows mild congestion. Apparently family informed by his radiator repairer at the [facility] that there is nothing much can be done. His last echocardiogram a month ago shows ejection fraction 15-20% with akinetic inferior wall. -will start Lasix 40 mg IV b.i.d. with monitoring volume status. -assess for rehab. -will obtain records from [facility] and the [facility] to see what else can be done to optimize patient's symptoms and treatment. -will reduce Coreg from 12.5 mg b.i.d. to 6.25 mg b.i.d. to allow room in blood pressure for diuretics. Hold hydralazine for now until we evaluate and re-evaluate the blood pressure. - Subjective Date/time seen: 09/15/21 16:15 Interval history: Follow-up visit in this gentleman with decompensated left-sided congestive heart failure with profound ischemic cardiomyopathy, EF 15%. 09/14/2021: Patient says he feels somewhat better since admission following IV diuresis. Was resting comfortably sleeping in bed when I came in the room to see him but wearing nasal cannula oxygen . Started on Entresto. Date of service 09/15/2021: Feeling better, breathing better. Diuresing well. Still on 2 L nasal cannula. Renal function And blood pressure stable. Review of Systems Constitutional: Constitutional: Denies difficulty sleeping Eyes: Eyes: Reports no additional eye complaints Cardiovascular: Cardiovascular: Denies chest pain, Reports pedal edema and Reports leg edema Respiratory: Respiratory: Denies chest congestion and Reports dyspnea Gastrointestinal: Gastrointestinal: Denies abdominal pain Musculoskeletal: Musculoskeletal: Reports no additional musculoskeletal complaints Integumentary/Breasts: Skin/Breast: Denies rash Neurologic: Denies confusion Psychiatric: Psychiatric: Reports no additional psychiatric complaints Exam Const: General: comfortable and in distress Other: Pleasant older male sitting up in chair, talking to a friend, no distress HENMT: Mouth: Yes moist mucous membranes Neck: Neck: supple Resp: Effort & Inspection: normal respiratory effort Auscultation: rales Other: Rales 1/2 up on the right, 1/4 up on the left Cardio: Rate: regular rate Rhythm: regular rhythm GI: GI Palp: No Tenderness to palpation present (GI) Skin: General skin exam: no rashes or lesions noted Neuro: Speech: normal speech Motor exam (neuro): Normal motor muscle tone present throughout Extrem: General: no edema and no pedal edema Psych: Mental Status: mental status grossly normal Affect:
[2021-09-15 16:43] LABS: Glucose Point of Care 206 mg/dl (65-105)
[2021-09-15] MEDS: INSULIN GLARGINE (*BKC) 100 UNITS/ML 18 UNITS SUB-Q (19:23)
[2021-09-15] MEDS: ATORVASTATIN 40 MG TABLET 80 MG PO (20:19)
[2021-09-15 21:23] LABS: Glucose Point of Care 271 mg/dl (65-105)
[2021-09-16] VITALS (18 sets, daily range): BP systolic 90–124; BP diastolic 50–65; PULSE 67–98; RESP 16–22; TEMP 36–36.8; O2SAT 92–98
[2021-09-16 05:22] LABS: Anion Gap 1 mmol/L (8-16); Blood Urea Nitrogen 23 mg/dL (9-20); Calcium 9.1 mg/dL (8.4-10.2); Carbon Dioxide 33 mmol/L (22-30); Chloride 100 mmol/L (98-107); Estimated CRCL calculation 47 ml/min; Estimated Glomerular Filt Rate 59; Glucose 170 mg/dL (65-110); Potassium 3.7 mmol/L (3.4-5.0); Sodium 134 mmol/L (137-145)
[2021-09-16] MEDS: LEVOTHYROXINE SODIUM 100 MCG TABLET PO (06:18)
[2021-09-16 08:23] LABS: Glucose Point of Care 173 mg/dl (65-105)
[2021-09-16] MEDS: FERROUS SULFATE 324 MG TABLET PO (08:48)
[2021-09-16] MEDS: carvediloL 3.125 MG TABLET PO ×2 (08:48→23:49)
[2021-09-16] MEDS: VENLAFAXINE HCL XR 75 MG CAP.ER.24H PO (08:49)
[2021-09-16] MEDS: CLOPIDOGREL BISULFATE 75 MG TABLET PO (08:50)
[2021-09-16] MEDS: FINASTERIDE 5 MG TABLET PO (08:50)
[2021-09-16] MEDS: ASPIRIN 81 MG CHEWABLE TABLET PO (08:50)
[2021-09-16] MEDS: TAMSULOSIN HCL 0.4 MG CAPSULE PO (08:50)
[2021-09-16] MEDS: ENOXAPARIN 40 MG/0.4 ML SYRINGE SUB-Q (08:50)
--- NOTE | 2021-09-16 09:34 | PM.PNCARD ---
Progress Note: A&P Assessment and Plan (1) Acute exacerbation of CHF (congestive heart failure): Code(s): I50.9 - Heart failure, unspecified Status: Acute Assessment and Plan: Acute systolic and diastolic heart failure Diuresing well, edema resolved. Scattered rales, down to 1L O2. Will shift him to p.o. furosemide today Renal function stable Mild hypotension this morning, decrease Entresto to 12-13 dose. Check BMP in a.m. (2) Cardiomyopathy: Code(s): I42.9 - Cardiomyopathy, unspecified Status: Acute Assessment and Plan: EF 15-20% Entresto initiated, dose reduced this morning becaue of relative hypotension Continue carvedilol (3) Coronary artery disease: Code(s): I25.10 - Atherosclerotic heart disease of [place] coronary artery without angina pectoris Status: Acute Assessment and Plan: CAD with remote CABG, no angina Continue aspirin and atorvastatin. Also on Plavix. Subjective Date/time seen: 09/16/21 09:34 Interval history: Follow-up visit in this gentleman with decompensated left-sided congestive heart failure with profound ischemic cardiomyopathy, EF 15%. 09/14/2021: Patient says he feels somewhat better since admission following IV diuresis. Was resting comfortably sleeping in bed when I came in the room to see him but wearing nasal cannula oxygen . Started on Entresto. Date of service 09/15/2021: Feeling better, breathing better. Diuresing well. Still on 2 L nasal cannula. Renal function And blood pressure stable. Date of service 09/16/2021: Continues to improve. He is down to 1 L of oxygen today. His swelling has resolved. Mildly hypotensive this morning. Review of Systems Constitutional: Constitutional: Denies difficulty sleeping Eyes: Eyes: Reports no additional eye complaints Cardiovascular: Cardiovascular: Denies chest pain, Reports pedal edema and Reports leg edema Respiratory: Respiratory: Denies chest congestion and Reports dyspnea Gastrointestinal: Gastrointestinal: Denies abdominal pain Musculoskeletal: Musculoskeletal: Reports no additional musculoskeletal complaints Integumentary/Breasts: Skin/Breast: Denies rash Neurologic: Denies confusion Psychiatric: Psychiatric: Reports no additional psychiatric complaints Exam Const: General: cooperative, comfortable, no acute distress, alert, awake and in distress; No confusion Nutritional Appearance: well nourished Orientation/consciousness: patient oriented x3 and No confusion Other: Pleasant older male lying comfortably in bed. HENMT: Head: normal to inspection, normocephalic and atraumatic Ears: hearing grossly normal bilaterally General nose exam: Normal external nose present, Normal nares present and no nasal discharge noted Face and sinus: normal facial exam and no erythema Mouth: Yes moist mucous membranes, No drooling and No restricted motion Throat: uvula midline Eyes: General: appearance normal, both eyes and all related structures Alignment and Position: position normal Conjunctivae: conjunctivae normal Sclera: sclerae normal Pupils: Equal, round and reactive pupils present Direct Ophthalmoscopy: No photophobia Neck: Neck: normal visual inspection, supple and no JVD Thyroid: thyroid normal Carotids: no bruits Lymphatic: lymphedema not noted Chest: Chest palpation & inspection: normal inspection of the chest and no tenderness Resp: Effort & Inspection: normal respiratory effort and no nasal flaring Auscultation: clear to auscultation bilaterally, crackles, rales and no wheezes Other: Rales 1/2 up on the right, 1/4 up on the left Cardio: Jugular venous distension: no JVD Rate: regular rate Rhythm: regular rhythm Heart sounds: S1 normal heart sound present, S2 normal heart sound present, no gallops, no murmurs and no rubs GI: Inspection: non-distended Auscultation: normal bowel sounds Rectal Exam: deferred : General: No no CVA tend
[2021-09-16] MEDS: FUROSEMIDE 40 MG TABLET PO ×2 (10:21→17:38)
[2021-09-16] MEDS: SACUBITRIL/VALSARTAN 12-13 MG TABLET 1 TAB PO ×2 (10:21→20:16)
[2021-09-16 12:15] LABS: Glucose Point of Care 173 mg/dl (65-105)
--- NOTE | 2021-09-16 13:11 | PCOTNOTE ---
Attempted to see patient this pm, however patient refused due to decreased motivation. Pt reported, Nah, I'm gonna go home tomorrow. I'm good right here, baby. Pt refused activity out of bed at this time. I'm feeling good enough to go on home.
--- NOTE | 2021-09-16 13:49 | PCPTNOTE ---
Patient refused treatment this session. Patient reported he does not want to today, patient did not give a reason why.
[2021-09-16 16:44] LABS: Glucose Point of Care 272 mg/dl (65-105)
--- NOTE | 2021-09-16 16:59 | PM.IMPN ---
Progress Note: A&P Assessment and Plan (1) CHF (congestive heart failure): Qualifiers: Heart failure chronicity: acute on chronic Heart failure type: unspecified Qualified Code(s): I50.9 - Heart failure, unspecified Code(s): I50.9 - Heart failure, unspecified Status: Acute (2) Diabetes: Code(s): E11.9 - Type 2 diabetes mellitus without complications Status: Acute (3) Coronary artery disease: Code(s): I25.10 - Atherosclerotic heart disease of [place] coronary artery without angina pectoris Status: Acute (4) Hypertension: Code(s): I10 - Essential (primary) hypertension Status: Acute Plan # Acute on chronic systolic and diastolic CHF. EF 15-20% with diastolic dysfunction. Cardiology's was consulted and appreciate their input. Patient currently on Lasix 40mg IV b.i.d. Cumulative fluid loss of 5.1L. Entresto started but did not tolerate so dose decreased. Renal function stable. CXR yesterday showing diffuse pulmonary edema but exam better today and O2 requirement dropped to 1L O2. Lasix changed to oral route. Wean O2 as tolerated. Continue Coreg. marketing and development coordinator to assess jean of Entresto. Continue low Na diet. Home O2 evaluation. # DM - The patient's blood glucose was reviewed on 09/16. A1c 5.8. Glucose higher recently. Continue AccuCheks covering with sliding scale. Hypoglycemia protocol available as needed. Continue to follow. Resume metformin # CAD - Stable. Continue medical management with Coreg, ASA, Plavix and Lipitor. # HTN -Patient's blood pressure was reviewed on 09/16. Blood pressure low at times. Entresto adjusted. Will continue to monitor DVT prophylaxis: Lovenox Code status: Full. Patient and family wish to change to DNI. Subjective Date/time seen: 09/16/21 16:59 Interval history: 80yo male with CHF and CAD here for SOB and weakness. Patient feels started today. No chest pain. He feels shortness of breath is improved. Exam Narrative: AF 97.6 123/58 89 22 95% 1L Gen - NARD Chest -few basilar rhonchi otherwise clear. CV -irregularly irregular. Tele showing PVCs and brief runs of nonsustained V-tach up to 2-3 beats Abd - Soft, NT/ND, Positive BS Ext - No pedal edema Psych - Nml mood and affect Skin - Warm and dry Objective Data Vital Signs Vital Signs: Vital Signs - 24 hr 09/15/21 18:00 09/15/21 20:00 09/15/21 20:19 Temperature 96.7 F L Pulse Rate 85 82 89 Respiratory Rate 18 Blood Pressure 118/63 Pulse Oximetry 93 Oxygen Delivery Oxygen Flow Rate 09/15/21 20:00 09/15/21 23:51 09/15/21 23:53 Temperature 96.9 F L Pulse Rate 80 Respiratory Rate 18 Blood Pressure 137/74 Pulse Oximetry 93 100 100 Oxygen Delivery Nasal Cannula Nasal Cannula Oxygen Flow Rate 2 2 09/15/21 20:00 09/15/21 22:00 09/16/21 00:00 Temperature Pulse Rate 82 72 78 Respiratory Rate Blood Pressure Pulse Oximetry Oxygen Delivery Oxygen Flow Rate 09/16/21 01:50 09/15/21 21:48 09/16/21 04:00 Temperature Pulse Rate 84 79 Respiratory Rate Blood Pressure Pulse Oximetry 96 Oxygen Delivery Nasal Cannula Oxygen Flow Rate 2 09/16/21 04:00 09/16/21 04:00 09/16/21 06:00 Temperature 96.8 F L Pulse Rate 83 83 Respiratory Rate 18 Blood Pressure 105/58 L Pulse Oximetry 96 96 Oxygen Delivery Nasal Cannula Oxygen Flow Rate 2 09/16/21 07:47 09/16/21 08:48 09/16/21 08:45 Temperature 98.2 F Pulse Rate 67 79 98 Respiratory Rate 22 H Blood Pressure 90/54 L Pulse Oximetry 98 Oxygen Delivery Oxygen Flow Rate 09/16/21 08:45 09/16/21 09:00 09/16/21 10:00 Temperature Pulse Rate 90 77 Respiratory Rate Blood Pressure 90/62 L Pulse Oximetry 98 Oxygen Delivery Nasal Cannula Oxygen Flow Rate 2 09/16/21 12:18 09/16/21 12:38 09/16/21 12:38 Temperature 97.5 F L Pulse Rate 70 71 Respiratory Rate 22 H Blood Pressure 110
[2021-09-16] MEDS: metFORMIN HCL XR 500 MG TAB.SR.24H 1000 MG PO (17:37)
[2021-09-16] MEDS: INSULIN GLARGINE (*BKC) 100 UNITS/ML 18 UNITS SUB-Q (20:15)
[2021-09-16] MEDS: ATORVASTATIN 40 MG TABLET 80 MG PO (20:16)
[2021-09-16 20:24] LABS: Glucose Point of Care 324 mg/dl (65-105)
[2021-09-17] VITALS (14 sets, daily range): BP systolic 101–122; BP diastolic 56–60; PULSE 68–94; RESP 16–20; TEMP 36.2–36.5; O2SAT 87–98
[2021-09-17 05:09] LABS: Anion Gap 2 mmol/L (8-16); Blood Urea Nitrogen 29 mg/dL (9-20); Calcium 9.5 mg/dL (8.4-10.2); Carbon Dioxide 32 mmol/L (22-30); Chloride 101 mmol/L (98-107); Estimated CRCL calculation 47 ml/min; Estimated Glomerular Filt Rate 59; Glucose 136 mg/dL (65-110); Sodium 135 mmol/L (137-145)
[2021-09-17] MEDS: LEVOTHYROXINE SODIUM 100 MCG TABLET PO (06:18)
[2021-09-17] MEDS: carvediloL 3.125 MG TABLET PO (08:45)
[2021-09-17] MEDS: ASPIRIN 81 MG CHEWABLE TABLET PO (08:45)
[2021-09-17] MEDS: VENLAFAXINE HCL XR 75 MG CAP.ER.24H PO (08:45)
[2021-09-17 08:46] LABS: Glucose Point of Care 140 mg/dl (65-105)
[2021-09-17] MEDS: SACUBITRIL/VALSARTAN 12-13 MG TABLET 1 TAB PO (08:46)
[2021-09-17] MEDS: CLOPIDOGREL BISULFATE 75 MG TABLET PO (08:46)
[2021-09-17] MEDS: metFORMIN HCL XR 500 MG TAB.SR.24H 1000 MG PO (08:46)
[2021-09-17] MEDS: FUROSEMIDE 40 MG TABLET PO (08:47)
[2021-09-17] MEDS: FERROUS SULFATE 324 MG TABLET PO (08:47)
[2021-09-17] MEDS: FINASTERIDE 5 MG TABLET PO (08:47)
[2021-09-17] MEDS: ENOXAPARIN 40 MG/0.4 ML SYRINGE SUB-Q (08:48)
[2021-09-17] MEDS: TAMSULOSIN HCL 0.4 MG CAPSULE PO (08:48)
--- NOTE | 2021-09-17 09:30 | PM.PNCARD ---
Progress Note: A&P Assessment and Plan (1) Acute exacerbation of CHF (congestive heart failure): Code(s): I50.9 - Heart failure, unspecified Status: Acute Assessment and Plan: Acute systolic and diastolic heart failure Diuresing well, edema resolved. Scattered rales, down to 1L O2. Will shift him to p.o. furosemide today Renal function stable Tolerating medical therapy OK for discharge home today from a cardiac standpoint He wants to follow up in our office. I will arrange this. (2) Cardiomyopathy: Code(s): I42.9 - Cardiomyopathy, unspecified Status: Acute Assessment and Plan: EF 15-20% Continue Entresto, coreg (3) Coronary artery disease: Code(s): I25.10 - Atherosclerotic heart disease of [place] coronary artery without angina pectoris Status: Acute Assessment and Plan: CAD with remote CABG, no angina Continue aspirin and atorvastatin. Also on Plavix. Subjective Date/time seen: 09/17/21 09:30 Interval history: Follow-up visit in this gentleman with decompensated left-sided congestive heart failure with profound ischemic cardiomyopathy, EF 15%. 09/14/2021: Patient says he feels somewhat better since admission following IV diuresis. Was resting comfortably sleeping in bed when I came in the room to see him but wearing nasal cannula oxygen . Started on Entresto. Date of service 09/15/2021: Feeling better, breathing better. Diuresing well. Still on 2 L nasal cannula. Renal function And blood pressure stable. Date of service 09/16/2021: Continues to improve. He is down to 1 L of oxygen today. His swelling has resolved. Mildly hypotensive this morning. Date of service 09/17/2021: He feels fine this morning. He is frustrated because his coffee was brought to him cold. He does not have any chest pain, breathing is about the same. Review of Systems Constitutional: Constitutional: Denies chills, Denies difficulty sleeping, Reports fatigue, Denies fever(s), Reports lethargy, Reports poor appetite and Reports weakness Eyes: Eyes: Reports no additional eye complaints, Denies eye discharge, Denies loss of vision, Denies eye pain and Denies photophobia ENT: Reports dizziness, Denies epistaxis, Denies nasal congestion and Denies sore throat Cardiovascular: Cardiovascular: Denies chest pain, Reports syncope, Reports pedal edema, Reports leg edema, Denies palpitations, Reports dyspnea, Reports dyspnea on exertion and Denies orthopnea Respiratory: Respiratory: Denies chest congestion, Denies cough, Reports dyspnea, Reports dyspnea on exertion and Denies wheezing Gastrointestinal: Gastrointestinal: Denies abdominal pain, Denies diarrhea, Denies nausea and Denies vomiting Genitourinary: Genitourinary: Denies hematuria, Denies genital lesions and Denies dysuria Musculoskeletal: Musculoskeletal: Reports no additional musculoskeletal complaints, Denies arthralgias, Denies joint swelling and Denies numbness Integumentary/Breasts: Skin/Breast: Denies pruritus and Denies rash Neurologic: Denies confusion, Reports dizziness, Reports syncope, Denies loss of vision, Denies numbness and Reports weakness Psychiatric: Psychiatric: Reports no additional psychiatric complaints, Denies anxiety, Denies confusion and Denies depression Endocrine: Endocrine: Denies cold intolerance, Reports fatigue, Denies heat intolerance and Denies palpitations Hematologic/Lymphatic: Hematologic/Lymphatic: Denies easy bleeding and Denies easy bruising Allergic/Immunologic: Allergic/Immunologic: Denies urticaria and Denies wheezing Exam Const: General: cooperative, comfortable, no acute distress, alert, awake and in distress; No confusion Nutritional Appearance: well nourished Orientation/consciousness: patient oriented x3 and No confusion Other: Pleasant older male lying comfortably in bed. HENMT: Head: normal to inspection, normocephalic and atraumatic Ears: hearing grossl
--- NOTE | 2021-09-17 10:14 | HOMEO2EVAL ---
Evaluation was performed at [facility] Home Oxygen Evaluation RC: Home Oxygen (O2) Evaluation Start: 09/16/21 17:08 Freq: ONCE Status: Active Protocol: RPE Activity Type Activity Date Activity User E-sign Co-sign Detail Recorded Client Recorded Date Recorded By Document 09/17/21 09:30 [email or web address] [email or web address] 09/17/21 10:14 DJO Document 09/17/21 09:35 [email or web address] [email or web address] 09/17/21 10:14 DJO Document 09/17/21 09:40 [email or web address] [email or web address] 09/17/21 10:14 DJO Document 09/17/21 09:45 [email or web address] [email or web address] 09/17/21 10:14 DJO Document 09/17/21 09:55 [email or web address] [email or web address] 09/17/21 10:14 DJO 09/17/21 09/17/21 09/17/21 09:30 09:35 09:40 Home O2 Evaluation Test Phase Resting Exercise Exercise Oxygen Delivery Room Air Room Air Nasal Cannula Oxygen Flow Rate (L/min) 1 Pulse Oximetry (90-100 %) 92 87 L 88 L Pulse Rate (60-100 beats/min) 69 88 87 Treatment Charges O2 Evaluation - Inpatient 09/17/21 09/17/21 09:45 09:55 Home O2 Evaluation Test Phase Exercise Resting Oxygen Delivery Nasal Cannula Room Air Oxygen Flow Rate (L/min) Pulse Oximetry (90-100 %) 90 92 Pulse Rate (60-100 beats/min) 89 68 Treatment Charges
--- NOTE | 2021-09-17 10:31 | PCRCNOTE ---
HOME OXYGEN SET UP WITH [facility] MEDICAL PHONE NUMBER [phone]. TANK IN ROOM FOR DISCHARGE
[2021-09-17 12:44] LABS: Glucose Point of Care 187 mg/dl (65-105)
--- NOTE | 2021-09-17 13:33 | PCOTNOTE ---
Attempted to see patient, patient refused out of bed activity. Patient educated over importance of participating for improved outcomes. Patient continued to decline despite education. Dr. Gomez present during end of discussion with patient. Discussed patient being d/c from therapy if he continues to refuse to participate. Patient not seen this date for OT. Will continue plan of care as appropriate.
--- NOTE | 2021-09-17 14:37 | PM.DS ---
DS: Admitting Diagnosis Discharge Date 09/17/21 Admitting Diagnosis Shortness of breath DS: Discharge Diagnosis Discharge Diagnosis (1) CHF (congestive heart failure): Qualifiers: Heart failure chronicity: acute on chronic Heart failure type: unspecified Qualified Code(s): I50.9 - Heart failure, unspecified Code(s): I50.9 - Heart failure, unspecified Status: Acute (2) Diabetes: Code(s): E11.9 - Type 2 diabetes mellitus without complications Status: Acute (3) Coronary artery disease: Code(s): I25.10 - Atherosclerotic heart disease of [place] coronary artery without angina pectoris Status: Acute (4) Hypertension: Code(s): I10 - Essential (primary) hypertension Status: Acute DS: Summary Hospital Course Reason for hospitalization: 80yo male with CHF and CAD here for SOB and weakness. Please see H&P for details. Hospital Course: Patient presents to emergency room with complaints of shortness breath and weakness. Was found to have acute on chronic systolic and diastolic CHF. CXR showing pulmonary edema. EF 15-20% with diastolic dysfunction. Cardiology's was consulted and appreciate their input. Patient was treated with Lasix 40mg IV b.i.d. Cumulative fluid loss of 4.6L. Entresto started but did not tolerate so dose was decreased. Renal function remained stable. Exam and O2 requirement improved. Lasix changed to oral route. We continued his Coreg. installation coordinator provide information about Entresto. Home O2 evaluation showing he needs 2L with exertion but room air at rest. The patient's blood glucose was monitored closely with AccuCheks covering with sliding scale. Hypoglycemia protocol was available as needed. A1c 5.8. For his underlying CAD, we continued medical management with Coreg, ASA, Plavix and Lipitor. Patient's blood pressure was monitored closely and medications adjusted. He was weak on admission and therapy ordered but patient was refusing therapy. Patient feels much better. SOB resolved. He feels ready for discharge. Patient overall did well was able be discharged home on 09/17. Status at Discharge Cognitive/behavioral status at discharge: Stable Time Spent with Patient Time attestation: Total time spent providing and/or coordinating discharge services: 35 minutes Time spent: Greater than 30 minutes Exam Narrative: AF 97.7 104/56 82 16 98% 1L Gen - NARD Chest -clear distant breath sounds CV - RRR S1/S2. Tele showing NSR with PACs, brief runs of nonsustained V-tach Abd - Soft, NT/ND, Positive BS Ext - No pedal edema Psych - Nml mood and affect Skin - Warm and dry DS: Data Data Completed and Pending Labs on day of discharge: Labs from last 24 hours 09/17/21 09/17/21 09/17/21 12:34 07:46 04:17 Sodium 135 L Potassium 4.0 Chloride 101 Carbon Dioxide 32 H Anion Gap 2 L BUN 29 H Creatinine 1.20 Estim Creat Clear Calc 47 Estimated GFR 59 Glucose 136 H POC Capillary Glucose 187 H 140 H Calcium 9.5 09/16/21 09/16/21 20:16 16:33 Sodium Potassium Chloride Carbon Dioxide Anion Gap BUN Creatinine Estim Creat Clear Calc Estimated GFR Glucose POC Capillary Glucose 324 H 272 H Calcium Discharge Plan Discharge Attending physician on discharge: Mickey Gomez Consulting providers: Randy Harrison Discharging Clinician: Mickey Gomez Anticipated Discharge Date/Time: 09/17/21 14:50 Patient Disposition: Home Health Service Activity: as tolerated Diet: heart healthy, diabetic and low sodium Discharge Instructions: Per Care Coordination Patient is arranged to have [facility] for RN, PT, OT [phone] RN please fax completed discharge instructions [phone] Please avoid large gathering, wear face coverings in public and practice social distance. Please check glucose before meals and before bed. Record and
== END 2021-09-17 15:32 | disposition home or self-care (01) | DRG 280 ==
LOC: ANHED 10:52 → ANHIMU 14:06
PROVIDERS: Emergency Medicine; Nurse Practitioner Adult Health; Admitting Provider Internal Medicine; Emergency Provider Nurse Practitioner Family; Visit Provider Internal Medicine
DX: I11.0 Hypertensive heart disease with heart failure (principal); I50.43 Acute on chronic combined systolic (congestive) and diastolic (congestive) heart failure; I22.9 Subsequent ST elevation (STEMI) myocardial infarction of unspecified site; R09.02 Hypoxemia; I25.10 Atherosclerotic heart disease of native coronary artery without angina pectoris; I25.5 Ischemic cardiomyopathy; Z95.1 Presence of aortocoronary bypass graft; I95.9 Hypotension, unspecified; E78.5 Hyperlipidemia, unspecified; E11.9 Type 2 diabetes mellitus without complications; N40.0 Benign prostatic hyperplasia without lower urinary tract symptoms; E03.9 Hypothyroidism, unspecified; Z79.84 Long term (current) use of oral hypoglycemic drugs; Z79.4 Long term (current) use of insulin; Z95.5 Presence of coronary angioplasty implant and graft; Z87.891 Personal history of nicotine dependence
CPT/HCPCS: 36415; 71046; 80048; 80053; 80069; 82948; 83735; 83880; 84484; 85025; 85610; 85730; 93005; 94618; 96372; 96374; 96376; 97161; 97165; 97530; 99285; A9270; G0378; J1650; J1815; J1940; J3475